=== PATIENT | male | born 1985 | race Caucasian/White ===

== ENCOUNTER 2017-08-14 08:40 | Emergency (ER) | payer BC ==
[~2017-08-14] VITALS: Ht 177.8 cm; Wt 102.1 kg
--- OUTSIDE RECORDS SUMMARY | ~2017-08-14 | XMS ---
Demographics + + + | Address | [address] | | | [place] [address] | + + + | Preferred Language | Unknown | + + + | Marital Status | Unknown | + + + | Muslim Affiliation | Unknown | + + + | Race | Unknown | + + + | Ethnic Group | Unknown | + + + Author + + + | Author | [facility] | + + + | Organization | [facility] | + + + | Address | [address] | | | [place] [address] | + + + | Phone | | + + + Care Team Providers + + + + | Care Verify Rep Name | Role | Phone | + + + + Unavailable | Unavailable | + + + + PROBLEMS + + + + + + + + | Type | Condition | ICD9-CM | [id number] | Onset | Condition | SNOMED | | | | Code | Code | Dates | Status | Code | + + + + + + + + | Problem | Impetigo | 684 | | | Active | [id number] | + + + + + + + + | Problem | JOINT | 719.46 | | | Active | [id number] | | | PAIN-L/LEG | | | | | | + + + + + + + + | Assessment | Thoracic | M54.6 | | 28 August, | Active | [id number] | | | back pain | | | 2016 | | | + + + + + + + + ALLERGIES + + + + +---------+ | Substance | Reaction | Event Type | Date | Status | + + + + +---------+ | Marquez | Unknown | Non Drug | August, | Unknown | | | | Allergy | | | + + + + +---------+ SOCIAL HISTORY No smoking Hx information available PLAN OF CARE VITAL SIGNS + + + + | Height | 71 in | 2016-08-28 | + + + + | Weight | 237.8 lbs | 2016-08-28 | + + + + | BMI | 33.16 kg/m2 | 2016-08-28 | + + + + | Temperature | 98.8 degrees Fahrenheit | 2016-08-28 | + + + + | Heart Rate | 86 /min | 2016-08-28 | + + + + | Blood pressure systolic | 177 mm Hg | 2016-08-28 | + + + + | Blood pressure diastolic | 113 mm Hg | 2016-08-28 | + + + + MEDICATIONS + + +---------+ + + + +--------+ | Medicati | Instruct | Dosage | Frequenc | Start | End Date | Duration | Status | | on | ions | | y | Date | | | | + + +---------+ + + + +--------+ | Cycloben | Orally | 1-2 | 8h | 28 August, | 31 August, | 3 days | Active | | zaprine | Three | tablet | | 2016 | 2016 | | | | HCl 5 MG | times a | as | | | | | | | | day | needed | | | | | | + + +---------+ + + + +--------+ RESULTS No Results PROCEDURES + + + + + | Procedure | Date Ordered | Related Diagnosis | Body Site | + + + + + | Est Level III | August 28, 2016 | | | | Intermediate | | | | + + + + + IMMUNIZATIONS No Known Immunizations"
--- OUTSIDE RECORDS SUMMARY | ~2017-08-14 | XMS | Clinical Summary ---
Demographics + + + | Address | [address] | | | [place] [address] | + + + | Home Phone | | + + + | Preferred Language | Unknown | + + + | Marital Status | Single | + + + | Presybeterian Affiliation | 1013 | + + + | Race | Unknown | + + + | Ethnic Group | Unknown | + + + Author + + + | Author | [facility] | | | and [place] | + + + | Organization | [facility] | | | and [place] | + + + | Address | Unknown | + + + | Phone | Unavailable | + + + Support + + +---------+ + | Name | Relationship | Address | Phone | + + +---------+ + | Chloé Rose | ECON | Unknown | | + + +---------+ + Care Team Providers + +------+ + | Care Featherer Name | Role | Phone | + +------+ + | No, Physician | PP | Unavailable | + +------+ + Allergies No Known Allergies Current Medications + + +-------+---------+------+------+-------+ | Prescription | Sig. | Disp. | Refills | Star | End | Statu | | | | | | t | Date | s | | | | | | Date | | | + + +-------+---------+------+------+-------+ | naproxen | Take 500 mg by mouth | | | | | Activ | | (NAPROSYN) 500 mg | 2 times daily (with | | | | | e | | tablet | breakfast & | | | | | | | | dinner). | | | | | | + + +-------+---------+------+------+-------+ | cyclobenzaprine | Take 10 mg by mouth | | | | | Activ | | (FLEXERIL) 10 mg | 3 times daily as | | | | | e | | tablet | needed for Muscle | | | | | | | | spasms. | | | | | | + + +-------+---------+------+------+-------+ Active Problems Not on file Family History + + +------+ + | Medical History | Relation | Name | Comments | + + +------+ + | No Known Problems | Father | | | + + +------+ + | No Known Problems | Maternal | | | | | Grandfath | | | | | er | | | + + +------+ + | No Known Problems | Maternal | | | | | Grandmoth | | | | | er | | | + + +------+ + | Thyroid disease | Mother | | | + + +------+ + | No Known Problems | Paternal | | | | | Grandfath | | | | | er | | | + + +------+ + | No Known Problems | Paternal | | | | | Grandmoth | | | | | er | | | + + +------+ + + +------+--------+ + | Relation | Name | Status | Comments | + +------+--------+ + | Father | | Other | STATUS UNKNOWN | + +------+--------+ + | Maternal Grandfather | | Other | STATUS UNKNOWN | + +------+--------+ + | Maternal Grandmother | | Other | STATUS UNKNOWN | + +------+--------+ + | Mother | | Alive | | + +------+--------+ + | Paternal Grandfather | | Other | STATUS UNKNOWN | + +------+--------+ + | Paternal Grandmother | | Other | STATUS UNKNOWN | + +------+--------+ + Social History + +-------+ +--------+------+ | Tobacco Use | Types | Packs/Day | Years | Date | | | | | Used | | + +-------+ +--------+------+ | Current Every Day | | 0.5 | 15 | | | Smoker | | | | | + +-------+ +--------+------+ + +---+---+---+ | Smokeless Tobacco: | | | | | Never Used | | | | + +---+---+---+ + + +---------+ + | Alcohol Use | Drinks/We | oz/Week | Comments | | | ek | | | + + +---------+ + | Yes | | | Frequently | + + +---------+ + + + + | Sex Assigned at | Date Recorded | | | | + + + | Not on file | | + + + Plan of Treatment + + + + + | Health Maintenance | Due Date | Last Done | Comments | + + + + + | Vaccine: | | | | | Dtap/Tdap/Td (1 - | 3 | | | | Tdap) | | | | + + + + + | Vaccine: | | | | | Pneumococcal 19-64 | 3 | | | | (PPSV23 only) Medium | | | | | Risk (1 of 1 - | | | | | PPSV23) | | | | + + + + + | Vaccine: Influenza | | | | | (Season Ended) | 8 | | | + + + + + Results Not on filefrom Last 3 Months Insurance +-------+--------+ +------+-------+---------+ | Payer | Benefi | Subscriber | Type | Phone | Address | | | t Plan | ID | | | | | | / | | | | | | | Group | | | | | +-------+--------+ +------+-------+---------+ | BCBS | BCBS | xxxxxxxxxxx | PPO | | | | | OUT OF | x | | | | | | STATE | | | | | | | PPO | | | | | +-------+--------+ +------+-------+---------+ + +--------+ +--------+ + + | Guarantor Name | Accoun | Relation to | Date | Phone | Billing Address | | | t Type | Patient | of | | | | | | | | | | + +--------+ +--------+ + + | WALE MAYS | Person | Self | [birth year] Home: | [address] | | | al/Fam | | 1985 | [phone] | [place] [address] | | | meaghan | | | 2004 | | + +--------+ +--------+ + +"
--- OUTSIDE RECORDS SUMMARY | ~2017-08-14 | XMS | Clinical Summary ---
Demographics + + + | Address | [address] | | | [place] [address] | + + + | Home Phone | | + + + | Preferred Language | Unknown | + + + | Marital Status | Single | + + + | Yazdanism Affiliation | Unknown | + + + | Race | Unknown | + + + | Ethnic Group | Unknown | + + + Author + + + | Author | [facility] | + + + | Organization | [facility] | + + + | Address | Unknown | + + + | Phone | Unavailable | + + + Support + + +---------+ + | Name | Relationship | Address | Phone | + + +---------+ + | Chloé Mays | ECON | Unknown | | + + +---------+ + Care Team Providers + +------+ + | Care Cell Room Operator Name | Role | Phone | + +------+ + | Clinic, [facility] | PP | Unavailable | | Community | | | + +------+ + Allergies Not on [...]
--- OUTSIDE RECORDS SUMMARY | ~2017-08-14 | XMS | Clinical Summary ---
Demographics + + + | Address | [address] | | | [place] [address] | + + + | Home Phone | | + + + | Preferred Language | Unknown | + + + | Marital Status | Single | + + + | Jainism Affiliation | Unknown | + + + [...] | + + + + + | GALEN ROMERO | ECON | [address] | | | | | [place] [address] | | + + + + + Care Team Providers + +------+ + | Care Recreation Leader Name | Role | Phone | + +------+ + PP | Unavailable | + +------+ + Source Comments YANG is fully live on both [facility] and [facility] InPatient.[facility] Allergies Not on File Current Medications Not [...] | + + + + + | INFLUENZA VACCINE | | | | | (FLU SHOT) | 8 | | | + + + + + Results Not on filefrom Last 3 Months"
--- OUTSIDE RECORDS SUMMARY | ~2017-08-14 | XMS | Clinical Summary ---
Demographics + + + | Address | [address] | | | [place] [address] | + + + | Home Phone | | + + + | Preferred Language | Unknown | + + + | Marital Status | Single | + + + | Yazdanism Affiliation | 1013 | + + + | Race | Unknown | + + + | Ethnic Group | Unknown | + + + Author + + + | Author | [facility] | | | and [place] | + + + | Organization | [facility] | | | and [place] | [...] Team Providers + +------+ + | Care Potato Picker Name | Role | Phone | + [...] Self | [birth year] | Home: | [address] | | | al/Fam | | 1985 | [phone] | [place] [address] | | | meaghan | | | 2004 | | + +--------+ +--------+ + +"
--- OUTSIDE RECORDS SUMMARY | ~2017-08-14 | XMS | Clinical Summary ---
Demographics + + + | Address | [address] | | | [place] [address] | + + + | Home Phone | | + + + | Preferred Language | Unknown | + + + | Marital Status | Single | + + + | Scientology Affiliation | Unknown | + + + | Race | Unknown | + + + | Ethnic Group | Unknown | + + + Author + + + | Author | [facility] | + + + | Organization | [facility] | + + + | Address | Unknown | + + + | Phone | Unavailable | + + + Support + + +---------+ + | Name | Relationship | Address | Phone | + + +---------+ + | Chloé Mays | ECON | Unknown | | + + +---------+ + Care Team Providers + +------+ + | Care Locks Tender Name | Role | Phone | + +------+ + | Clinic, [facility] | PP | Unavailable | | Community [...]
--- OUTSIDE RECORDS SUMMARY | ~2017-08-14 | XMS | Clinical Summary ---
Demographics + + + | Address | [address] | | | [place] [address] | + + + | Home Phone [...] | | | | | [place] [address] | | + + + + + Care Team Providers + +------+ + | Care Policy Change Clerk Name | Role | Phone | + +------+ + PP | Unavailable | + +------+ + Source Comments YANG is fully live on both [facility] and [facility] InPatient.[facility] Allergies Not on File Current Medications Not [...]
== END 2017-08-14 09:10 | disposition home or self-care (01) ==
LOC: ED 08:40
DX: M54.9 Dorsalgia, unspecified (principal); R10.9 Unspecified abdominal pain

== ENCOUNTER 2018-09-19 08:55 | Day surgery (SDC) | payer OTHER ==
[~2018-09-19] VITALS: Ht 177.8 cm; Wt 106.6 kg
--- NOTE | 2018-09-19 13:00 | NUR ---
09/19/18 1300 Sheets,Aida 1255 PT ARRIVED TO PACU ON 10L VIA MASK, RESP EVEN AND UNLABORED. PT DROWSY AND REPORTS 5/10 PAIN AND NO NAUSEA. 1258 O2 MASK REMOVED. PT ABLE TO MOVE FINGERS AND REPORTS SOME NUMBNESS AND TINGLING IN FINGERS.
--- NOTE | 2018-09-19 13:37 | NUR ---
1315 PT BACK TO ROOM FROM PACU AWAKE AND ALERT DENIES PAIN AND NAUSEA,
--- NOTE | 2018-09-19 13:38 | NUR ---
1320 PT WALKED TO BATHROOM WITHOUT ASSIST HE WAS ABLE TO VOID
--- NOTE | 2018-09-19 13:39 | NUR ---
1335 PT ASKING FOR FOOD SANDWICH WAS ORDERED FOR HIM. [place] DRINKING WATER TOLERATES WELL.
--- NOTE | 2018-09-19 14:08 | NUR ---
1400 PT ATE A SANDWICH AND DRANK COKE TOLERATES WELL. DISCHARGE INSTRUCTIONS GIVEN TO PT HE VOICED UNDERSTANDING
--- NOTE | 2018-09-20 07:02 | OR ---
[facility] [address] [place], [place] [address] Signed DATE OF OPERATION: 09/19/2018 SURGEON: Lorri Saab MD PREOPERATIVE DIAGNOSIS: Displaced fracture, right 5th finger proximal phalanx base. POSTOPERATIVE DIAGNOSIS: Displaced fracture, right 5th finger proximal phalanx base. PROCEDURE: Attempted closed reduction followed by open reduction and K-wire fixation. ANESTHESIA: General. SPECIMENS: None. COMPLICATIONS: None. Tourniquet was not used, but we did use an Esmarch about the wrist for about 15 minutes. WHAT WAS DONE: The patient was taken to the operating room. After anesthesia was induced and the airway secured, the patient was positioned, prepped and draped in a routine sterile fashion. Fluoroscopy was brought in and the fracture site identified. We then made multiple attempts to reduce the fracture, but we were unable to correct the marked apex volar angulation. We, therefore, wrapped the hand with an Esmarch and left it snugly about the wrist. We then made a dorsal incision over the proximal phalanx through skin and subcutaneous tissue. The extensor tendon was identified and gently split. The fracture site was then identified and even with 2 dental picks, it was very difficult to reduce the fracture. However, once we were able to get it reduced, we held it in place and then secured it with two 1.5 K-wires introduced in a crisscross fashion. This gave us a stable construct. We were then able to wiggle the finger and the proximal and distal segments moved synchronously. The excess K-wires were cut off and bent over outside the skin. The wounds were gently irrigated and closed in a standard fashion. A sterile dressing was applied. The patient was awakened and taken to recovery room where he Electronically Signed By: LORRI SAAB MD 09/20/18 0702 PATIENT NAME: WALE ROMERO OPERATIVE REPORT DATE OF : 81 REPORT #: [id number] PHYSICIAN: LORRI SAAB MD PCP: NO PRIMARY CARE PHYSICIAN REPORT IS CONFIDENTIAL AND NOT TO BE RELEASED WITHOUT AUTHORIZATION [address] [address] Signed arrived in stable condition. Counts were correct and antibiotic protocols were followed. Lorri Saab MD WFGerri/MODL /[id number] Copies: ~ Electronically Signed By: LORRI SAAB MD 09/20/18 0702 PATIENT NAME: WALE ROMERO OPERATIVE REPORT DATE OF : 81 REPORT #: [id number] PHYSICIAN: LORRI SAAB MD PCP: NO PRIMARY CARE PHYSICIAN REPORT IS CONFIDENTIAL AND NOT TO BE RELEASED WITHOUT AUTHORIZATION
[2018-09-20] MEDS ORDERED: IBUPROFEN800 MG PO (11:37)
[2018-09-20] MEDS ORDERED: PAIN RELIEVER500 M1 PO (11:37)
[2018-09-20] MEDS ORDERED: NORCO 5-325 TA1 EACH PO (11:50)
== END 2018-09-19 14:20 | disposition home or self-care (01) ==
LOC: DS 08:55 → OPS 08:55 → DS 11:45 → OPS 14:20
PROVIDERS: Orthopaedic Surgery
PROC: 0PST04Z Reposition Right Finger Phalanx with Internal Fixation Device, Open Approach (ICD-10-PCS; principal; 2018-09-19 11:45)
DX: S62.616A Displaced fracture of proximal phalanx of right little finger, initial encounter for closed fracture (principal); F32.9 Major depressive disorder, single episode, unspecified; E66.9 Obesity, unspecified; F17.200 Nicotine dependence, unspecified, uncomplicated; Z68.33 Body mass index [BMI] 33.0-33.9, adult; W22.8XXA Striking against or struck by other objects, initial encounter
CPT/HCPCS: 01830; 73140; J0690; J1100; J1885; J2250; J2405; J2704; J2765; J3010; J7120

== ENCOUNTER 2018-09-20 11:25 | Emergency (ER) | payer OTHER ==
[~2018-09-20] VITALS: Ht 177.8 cm; Wt 106.6 kg
--- OUTSIDE RECORDS SUMMARY | ~2018-09-20 | XMS | Encounter Summary ---
Demographics + + + | Address | [address] | | | [place] [address] | + + + | Home Phone | | + + + | Preferred Language | Unknown | + + + | Marital Status | Single | + + + | Worship Affiliation | Unknown | + + + | Race | White | + + + | Ethnic Group | Not or | + + + Author + + + | Author | [facility] | + + + | Organization | [facility] | + + + | Address | Unknown | + + + | Phone | Unavailable | + + + Support + + + + + | Name | Relationship | Address | Phone | + + + + + | Shauna Mays | ECON | [address] | | | | | [place] [address] | | + + + + + Care Team Providers + +------+ + | Care Biodiesel Process Control Technician Name | Role | Phone | + +------+ + PCP | Unavailable | + +------+ + Encounter Details +--------+ + + + + | Date | Type | Department | Care Team | Description | +--------+ + + + + | 03/10/ | Results | Orthopaedics at | Kameron Asif MD | | | 1996 | Only | [facility] [address] | [address] | | | | | [facility] | [address] [place], | | | | | Mailcode: [id number] | [place] [address] | | | | | Physician's Es | | | | | | [place], [place] | | | | | | [address] | | | | | | [phone] | | | +--------+ + + + + Social History + +-------+ +--------+------+ | Tobacco Use | Types | Packs/Day | Years | Date | | | | | Used | | + +-------+ +--------+------+ | Never Assessed | | | | | + +-------+ +--------+------+ + + + | Sex Assigned at | Date Recorded | | | | + + + | Not on file | | + + + + + + + | Job Start Date | Occupation | Industry | + + + + | Not on file | Not on file | Not on file | + + + + + + + + | Travel History | Travel Start | Travel End | + + + + + + | No recent travel history available. | + + documented as of this encounter Plan of Treatment Not on filedocumented as of this encounter Procedures + +--------+ + + + | Procedure Name | Priori | Date/Time | Associated Diagnosis | Comments | | | ty | | | | + +--------+ + + + | X-RAY BONE AGE; LEFT | Routin | 03/10/1997 | | Results for this | | HAND | e | 2:35 PM | | procedure are in the | | | | PST | | results section. | + +--------+ + + + documented in this encounter Results BONE AGE; LEFT HAND (03/10/1997 2:35 PM PST) + + + + + + | Component | Value | Ref Range | Performed | Pathologist | | | | | At | Signature | + + + + + + | BONE AGE, | Radiologist 1: JUSTIN | | | | | LEFT HAND | JOSH Villalobos, | | | | | | Prachi-Radiologist 2: | | | | | | JOSH ANDERSON, | | | | | | M.FLASH | | | | | | MAXIMO | | | | | | | | | | | | | | | | | | [phone] | | | | | | BONE AGE/LEFT HAND on | | | | | | 03/10/97 at 1435Dictated | | | | | | on 03/11/97 COMPARISON: | | | | | | 09/11/95 single view of | | | | | | left hand for bone age. | | | | | | FINDINGS: The | | | | | | mineralization and | | | | | | structure of the bones | | | | | | appearsnormal. The joint | | | | | | space of the hand are | | | | | | normal. The | | | | | | patient'schronologic age | | | | | | is 11 years, nine | | | | | | months which has an | | | | | | associatedstandard | | | | | | deviation of 12 | | | | | | months. Using the | | | | | | standards of Greulich | | | | | | andPyle, the estimated | | | | | | bone age is 11 years, | | | | | | six months. IMPRESSION: | | | | | | Concordant skeletal | | | | | | maturation of 11 years, | | | | | | six months with | | | | | | thechronological age. | | | | | | END OF IMPRESSION: | | | | + + + + + + + + | Specimen | + + | | + + + +---------+ + + | Performing | Address | City/State/Zipcode | Phone Number | | Organization | | | | + +---------+ + + | [facility] DEPARTMENT OF | | | | | RADIOLOGY | | | | + +---------+ + + documented in this encounter Visit Diagnoses Not on filedocumented in this encounter"
--- OUTSIDE RECORDS SUMMARY | ~2018-09-20 | XMS | Encounter Summary ---
Demographics + + + | Address | [address] | | | [place] [address] | + + + | Home Phone | | + + + | Preferred Language | Unknown | + + + | Marital Status | Single | + + + | Confucianism Affiliation | Unknown | + + + | Race | White | + + + | Ethnic Group | Not or | + + + Author + + + | Author | [facility] | + + + | Organization | [facility] | + + + | Address | Unknown | + + + | Phone | Unavailable | + + + Support + + + + + | Name | Relationship | Address | Phone | + + + + + | Shauna Mays | ECON | [address] | | | | | [place] [address] | | + + + + + Care Team Providers + +------+ + | Care Trench Digger Name | Role | Phone | + +------+ + PCP | Unavailable | + +------+ + Encounter Details +--------+ + + + + | Date | Type | Department | Care Team | Description | +--------+ + + + + | 09/10/ | Results | Orthopaedics at | Kameron Asif MD | | | 1995 | Only | [facility] [address] | [address] | | | | | [facility] | [address] [place], | | | | | Mailcode: [id number] | [place] [address] | | | | | Physician's Es | | | | | | [place], [place] | | | | | | [address] | | | | | | [phone] | | | +--------+ + + + [...] X-RAY BONE AGE; LEFT | Routin | 09/11/1995 | | Results for this | | HAND | e | 3:00 PM | | procedure are in the | | | | PDT | | results section. | + +--------+ + + + documented in this encounter Results BONE AGE; LEFT HAND (09/11/1995 3:00 PM PDT) + + + + + + | Component | Value | Ref Range | Performed | Pathologist | | | | | At | Signature | + + + + + + | BONE AGE, | Radiologist 1: JATINDER LARES | | | | | LEFT HAND | Prachi Wiley-Radiologist 2: | | | | | | JATINDER LARES, | | | | | | DARIANA | | | | | | MAXIMO | | | | | | | | | | | | | | | | | | [birth year] | | | | | | BONE AGE, LEFT | | | | | | HAND, 09/11/95 AT | | | | | | 1500: Dictated: | | | | | | No previous films | | | | | | are available for | | | | | | comparison. FINDINGS: A | | | | | | single view of the left | | | | | | hand from 11 Sep 1995 is | | | | | | reviewed. Usingthe | | | | | | standards of Gelacio | | | | | | and Julio Cesar the patient's | | | | | | estimated bone age is9 | | | | | | years. The bones | | | | | | appear to have normal | | | | | | mineralization | | | | | | andconfiguration. | | | | | | IMPRESSION: Estimated | | | | | | bone age 9 years. END | | | | | | OF IMPRESSION: | | | | + + + + + + + + | Specimen | + + | | + + + +---------+ + + | Performing | Address | City/State/Zipcode | Phone Number | | Organization | | | | + +---------+ + + | [facility] DEPARTMENT OF | | | | | RADIOLOGY | | | | + +---------+ + + documented in this encounter Visit Diagnoses Not on filedocumented in this encounter"
--- OUTSIDE RECORDS SUMMARY | ~2018-09-20 | XMS | Encounter Summary ---
Demographics + + + | Address | [address] | | | [place] [address] | + + + | Home Phone | | + + + | Preferred Language | Unknown | + + + | Marital Status | Single | + + + | Yazidi Affiliation | Unknown | + + + | Race | White | + + + | Ethnic Group | Not or | + + + Author + + + | Author | [facility] | + + + | Organization | [facility] | + + + | Address | Unknown | + + + | Phone | Unavailable | + + + Support + + + + + | Name | Relationship | Address | Phone | + + + + + | Shauna Mays | ECON | [address] | | | | | [place] [address] | | + + + + + Care Team Providers + +------+ + | Care Boilerhouse Mechanic Name | Role | Phone | + +------+ + PCP | Unavailable | + +------+ + Encounter Details +--------+ + + + + | Date | Type | Department | Care Team | Description | +--------+ + + + + | 02/13/ | Office | UNKNOWN DEPARTMENT | Note, Outpatient | Progress Note | | 1993 | Visit-Trans | [address] [facility] | Clinic | | | | zhane | [facility] | | | | | | [place], [place] | | | | | | [address] | | | +--------+ + + + [...] + + documented as of this encounter Progress Notes Interface, Workers Compensation Claims Supervisor In - 08/25/2006 5:12 AM PDT CLINIC DATE: 02/13/94 PEDIATRIC UROLOGY CLINIC REASON FOR ADMISSION: Preoperative history and physical (H&P) for right undescended testis. HISTORY OF PRESENT ILLNESS: Alfred is an otherwise healthy 8-year-old male who had a history of right undescended testis. His mother states that at the age of [age], his physician thought bilateral testes were palpable and recommended no further therapy. However, on further evaluation more recently, during an admission for bilateral slipped epiphyses in the hips, he was noted to have an empty right hemiscrotum. On further examination by Genitourinary () referral, some tissue was present within the right hemiscrotum, thought to be consistent with gubernacular or tunica remnants, but no discrete testicle was palpable. The child is obese and, as a result, no significant masses are palpable in the groin. He presents, at this time, for definitive management. PAST HISTORY: Negative except for the history of bilateral slipped femoral epiphyses. Patient has a history of borderline diabetes which is apparently diet controlled at the present time. FAMILY HISTORY: Remarkable only for recurrent nosebleeds of prolonged duration in both the mother, the grandfather and his sister. The patient, himself, has never had any problems with bleeding. He has no history of urinary tract infections. PHYSICAL EXAMINATION: Reveals a pleasant, significantly obese male in no apparent distress. The cardiac and chest exams are unremarkable. There is no cervical adenopathy. The abdomen is morbidly obese but no palpable masses are palpable. The phallus is concealed but when the prepubic fat pad is retracted, a normal appearing glans and meatus are present. The left scrotum is flattened but a testicle is palpable in the normal position. The right scrotum is also flattened but is devoid of palpable gonad. Some tissue is present, however. ASSESSMENT: Right undescended, nonpalpable testis. Questionable history of palpable right gonad in the past at the age of [age]. PLAN: Since this testis is not easily palpable at the age of 8, and since his risk of gonadal malignancy will increase as he enters his teens and 20s, it is essential that this testicle will be easily palpable for following him for the development of a malignancy. As a result, right inguinal exploration and right orchidopexy will be performed, if possible, next month. A full PARQ conference was held with the patient's mother stressing the multiple possibilities associated with undescended testes. These include orchiectomy, staged orchidopexy, or single stage orchidopexy. The risks for gonadal ischemia and subsequent testicular loss due to atrophy were stressed. Risks of infection and bleeding were also described. The patient's mother states she understands these risks and wishes to proceed. Consent was signed. Krunal Garrison M.D. Resident, Urology Allan Napier M.D. Chair Pad Maker Urology DV:re documented in this encounter Plan of Treatment Not on filedocumented as of this encounter Visit Diagnoses Not on filedocumented in this encounter"
--- OUTSIDE RECORDS SUMMARY | ~2018-09-20 | XMS | Encounter Summary ---
Demographics + + + | Address | [address] | | | [place] [address] | + + + | Home Phone | | + + + | Preferred Language | Unknown | + + + | Marital Status | Single | + + + | Pentecostal Affiliation | Unknown | + + + | Race | White | + + + | Ethnic Group | Not or | + + + Author + + + | Author | [facility] | + + + | Organization | [facility] | + + + | Address | Unknown | + + + | Phone | Unavailable | + + + Support + + + + + | Name | Relationship | Address | Phone | + + + + + | Shauna Mays | ECON | [address] | | | | | [place] [address] | | + + + + + Care Team Providers + +------+ + | Care Retirement Consultant Name | Role | Phone | + +------+ + PCP | Unavailable | + +------+ + Encounter Details +--------+ + + + + | Date | Type | Department | Care Team | Description | +--------+ + + + + | 08/22/ | Hospital | Registration [id number] | Corinna Mendoza, | | | 2006 | Activity | Benjy Shafer | ACN [address] [facility] | | | | | [facility] Mailcode: | [place], [place] | | | | | [place], [place] | [address] | | | | | [address] | [phone] | | | | | [phone] | | | +--------+ + + + [...] | + +--------+ + + + | DIFFERENTIAL | Routin | 08/23/2006 | | Results for this | | | e | 6:02 AM | | procedure are in the | | | | PDT | | results section. | + +--------+ + + + | CBC, WITH | Routin | 08/23/2006 | | Results for this | | DIFFERENTIAL | e | 6:02 AM | | procedure are in the | | | | PDT | | results section. | + +--------+ + + + | BASIC METABOLIC SET | Routin | 08/23/2006 | | Results for this | | (NA, K, CL, TCO2, | e | 6:02 AM | | procedure are in the | | BUN, CR, GLU, CA) | | PDT | | results section. | + +--------+ + + + | PHOSPHORUS, PLASMA | Routin | 08/23/2006 | | Results for this | | | e | 6:02 AM | | procedure are in the | | | | PDT | | results section. | + +--------+ + + + | MAGNESIUM, PLASMA | Routin | 08/23/2006 | | Results for this | | | e | 6:02 AM | | procedure are in the | | | | PDT | | results section. | + +--------+ + + + | HEMATOCRIT | Urgent | 08/23/2006 | | Results for this | | | | 12:10 AM | | procedure are in the | | | | PDT | | results section. | + +--------+ + + + | TYPE AND SCREEN | Routin | 08/22/2006 | | Results for this | | | e | 5:45 PM | | procedure are in the | | | | PDT | | results section. | + +--------+ + + + | INR | Urgent | 08/22/2006 | | Results for this | | | | 5:41 PM | | procedure are in the | | | | PDT | | results section. | + +--------+ + + + | BASIC METABOLIC SET | Urgent | 08/22/2006 | | Results for this | | (NA, K, CL, TCO2, | | 5:41 PM | | procedure are in the | | BUN, CR, GLU, CA) | | PDT | | results section. | + +--------+ + + + | CBC ONLY | Urgent | 08/22/2006 | | Results for this | | | | 5:41 PM | | procedure are in the | | | | PDT | | results section. | + +--------+ + + + | APTT (ACT. PART. | Urgent | 08/22/2006 | | Results for this | | THROMBO TIME) | | 5:41 PM | | procedure are in the | | | | PDT | | results section. | + +--------+ + + + | LIPASE, PLASMA | Urgent | 08/22/2006 | | Results for this | | | | 5:41 PM | | procedure are in the | | | | PDT | | results section. | + +--------+ + + + documented in this encounter Results MAGNESIUM, PLASMA (08/23/2006 6:02 AM PDT) + +-------+ + + + | Component | Value | Ref Range | Performed | Pathologist | | | | | At | Signature | + +-------+ + + + | MAGNESIUM,P | 1.9 | 1.8 - 2.5 mg/dL | [facility] | | | LASMA | | | DEPARTMENT | | | | | | OF | | | | | | PATHOLOGY | | + +-------+ + + + + + | Specimen | + + | | + + + + + + + | Performing | Address | City/State/Zipcode | Phone Number | | Organization | | | | + + + + + | [facility] | [address] | [place] [address] | | | PATHOLOGY | [address] | | | + + + + + | [facility] | [address] | [place] [address] | | | PATHOLOGY | [address] | | | + + + + + PHOSPHORUS, PLASMA (08/23/2006 6:02 AM PDT) + +-------+ + + + | Component | Value | Ref Range | Performed | Pathologist | | | | | At | Signature | + +-------+ + + + | PHOSPHORUS, | 4.5 | 2.4 - 4.7 mg/dL | [facility] | | | PLASMA | | | DEPARTMENT | | | (LAB) | | | OF | | | | | | PATHOLOGY | | + +-------+ + + + + + | Specimen | + + | | + + + + + + + | Performing | Address | City/State/Zipcode | Phone Number | | Organization | | | | + + + + + | [facility] | [address] | [place], [place] [address] | | | PATHOLOGY | [address] | | | + + + + + | [facility] | [address] | [place] [address] | | | PATHOLOGY | [address] | | | + + + + + BASIC METABOLIC SET (08/23/2006 6:02 AM PDT) + + + + + + | Component | Value | Ref Range | Performed | Pathologist | | | | | At | Signature | + + + + + + | GLUCOSE, | 125 (H)Comment: | 60 - 99 mg/dL | [facility] | | | PLASMA | Reference range change | | DEPARTMENT | | | (LAB) | for Glucose, Plasma | | OF | | | | effective 08/09/06. | | PATHOLOGY | | + + + + + + | BUN, PLASMA | 4 (L) | 6 - 20 mg/dL | [facility] | | | (LAB) | | | DEPARTMENT | | | | | | OF | | | | | | PATHOLOGY | | + + + + + + | CREATININE | 0.8 | 0.7 - 1.3 mg/dL | [facility] | | | PLASMA | | | DEPARTMENT | | | (LAB) | | | OF | | | | | | PATHOLOGY | | + + + + + + | SODIUM, | 140 | 136 - 145 | [facility] | | | PLASMA | | mmol/L | DEPARTMENT | | | (LAB) | | | OF | | | | | | PATHOLOGY | | + + + + + + | POTASSIUM, | 3.7 | 3.5 - 5.1 | [facility] | | | PLASMA | | mmol/L | DEPARTMENT | | | (LAB) | | | OF | | | | | | PATHOLOGY | | + + + + + + | CHLORIDE, | 105 | 98 - 107 mmol/L | [facility] | | | PLASMA | | | DEPARTMENT | | | (LAB) | | | OF | | | | | | PATHOLOGY | | + + + + + + | TOTAL CO2, | 30 (H) | 23 - 29 mmol/L | [facility] | | | PLASMA | | | DEPARTMENT | | | (LAB) | | | OF | | | | | | PATHOLOGY | | + + + + + + | CALCIUM, | 8.3 (L) | 8.5 - 10.5 | [facility] | | | PLASMA | | mg/dL | DEPARTMENT | | | (LAB) | | | OF | | | | | | PATHOLOGY | | + + + + + + + + | Specimen | + + | | + + + + + + + | Performing | Address | City/State/Zipcode | Phone Number | | Organization | | | | + + + + + | [facility] | [address] | [place] [address] | | | PATHOLOGY | [address] | | | + + + + + | [facility] | [address] | [place] [address] | | | PATHOLOGY | [address] | | | + + + + + DIFFERENTIAL (08/23/2006 6:02 AM PDT) + +--------+ + + + | Component | Value | Ref Range | Performed | Pathologist | | | | | At | Signature | + +--------+ + + + | NEUTROPHIL | 47 (L) | 50 - 70 % | [facility] | | | % | | | DEPARTMENT | | | | | | OF | | | | | | PATHOLOGY | | + +--------+ + + + | LYMPHOCYTE | 37 | 18 - 42 % | [facility] | | | % | | | DEPARTMENT | | | | | | OF | | | | | | PATHOLOGY | | + +--------+ + + + | MONOCYTE % | 12 (H) | 2 - 8 % | [facility] | | | | | | DEPARTMENT | | | | | | OF | | | | | | PATHOLOGY | | + +--------+ + + + | EOS % | 2 | 1 - 3 % | [facility] | | | | | | DEPARTMENT | | | | | | OF | | | | | | PATHOLOGY | | + +--------+ + + + | BASO % | 1 | <3 % | [facility] | | | | | | DEPARTMENT | | | | | | OF | | | | | | PATHOLOGY | | + +--------+ + + + | NEUTROPHIL | 2.5 | 1.8 - 7.7 K/cu | [facility] | | | # | | mm | DEPARTMENT | | | | | | OF | | | | | | PATHOLOGY | | + +--------+ + + + | LYMPHOCYTE | 2.0 | 1.0 - 4.8 K/cu | [facility] | | | # | | mm | DEPARTMENT | | | | | | OF | | | | | | PATHOLOGY | | + +--------+ + + + | MONOCYTE # | 0.7 | <0.9 K/cu mm | [facility] | | | | | | DEPARTMENT | | | | | | OF | | | | | | PATHOLOGY | | + +--------+ + + + | EOS # | 0.1 | <0.6 K/cu mm | [facility] | | | | | | DEPARTMENT | | | | | | OF | | | | | | PATHOLOGY | | + +--------+ + + + | BASO # | 0.1 | <0.2 | [facility] | | | | | | DEPARTMENT | | | | | | OF | | | | | | PATHOLOGY | | + +--------+ + + + + + | Specimen | + + | | + + + + + + + | Performing | Address | City/State/Zipcode | Phone Number | | Organization | | | | + + + + + | [facility] | [address] | [place], [place] [address] | | | PATHOLOGY | [address] | | | + + + + + | [facility] | [address] | [place] [address] | | | PATHOLOGY | [address] | | | + + + + + CBC, WITH DIFFERENTIAL (08/23/2006 6:02 AM PDT) + + + + + + | Component | Value | Ref Range | Performed | Pathologist | | | | | At | Signature | + + + + + + | WHITE CELL | 5.4 | 4.4 - 11.0 K/cu | [facility] | | | COUNT | | mm | DEPARTMENT | | | | | | OF | | | | | | PATHOLOGY | | + + + + + + | RED CELL | 4.04 (L) | 4.50 - 5.90 | [facility] | | | COUNT | | M/cu mm | DEPARTMENT | | | | | | OF | | | | | | PATHOLOGY | | + + + + + + | HEMOGLOBIN | 11.1 (L) | 13.5 - 17.5 | [facility] | | | | | g/dL | DEPARTMENT | | | | | | OF | | | | | | PATHOLOGY | | + + + + + + | HEMATOCRIT | 32.7 (L) | 41.0 - 53.0 % | [facility] | | | | | | DEPARTMENT | | | | | | OF | | | | | | PATHOLOGY | | + + + + + + | MCV | 81.0 | 80.0 - 96.0 fL | [facility] | | | | | | DEPARTMENT | | | | | | OF | | | | | | PATHOLOGY | | + + + + + + | MCHC | 34.0 | 33.4 - 35.5 | [facility] | | | | | g/dL | DEPARTMENT | | | | | | OF | | | | | | PATHOLOGY | | + + + + + + | RDW | 15.1 (H) | 11.5 - 15.0 % | [facility] | | | | | | DEPARTMENT | | | | | | OF | | | | | | PATHOLOGY | | + + + + + + | PLATELET | 267 | 150 - 400 K/cu | [facility] | | | COUNT | | mm | DEPARTMENT | | | | | | OF | | | | | | PATHOLOGY | | + + + + + + + + | Specimen | + + | | + + + + + + + | Performing | Address | City/State/Zipcode | Phone Number | | Organization | | | | + + + + + | [facility] | [address] | [place] [address] | | | PATHOLOGY | [address] | | | + + + + + | [facility] | [address] | [place] [address] | | | PATHOLOGY | [address] | | | + + + + + HEMATOCRIT (08/23/2006 12:10 AM PDT) + + + + + + | Component | Value | Ref Range | Performed | Pathologist | | | | | At | Signature | + + + + + + | HEMATOCRIT | 32.4 (L) | 41.0 - 53.0 % | [facility] | | | | | | DEPARTMENT | | | | | | OF | | | | | | PATHOLOGY | | + + + + + + + + | Specimen | + + | | + + + + + + + | Performing | Address | City/State/Zipcode | Phone Number | | Organization | | | | + + + + + | [facility] | [address] | [place] [address] | | | PATHOLOGY | [address] | | | + + + + + | [facility] | [address] [place] [address] [address] | [place] [address] | | | PATHOLOGY | [address] | | | + + + + + TYPE AND SCREEN (08/22/2006 5:45 PM PDT) + +-------+ + + + | Component | Value | Ref Range | Performed | Pathologist | | | | | At | Signature | + +-------+ + + + | ABO GROUP | O | | [facility] | | | | | | DEPARTMENT | | | | | | OF | | | | | | PATHOLOGY | | + +-------+ + + + | RH TYPE | POS | | [facility] | | | | | | DEPARTMENT | | | | | | OF | | | | | | PATHOLOGY | | + +-------+ + + + | ANTIBODY | NEG | | [facility] | | | SCREEN | | | DEPARTMENT | | | | | | OF | | | | | | PATHOLOGY | | + +-------+ + + + + + | Specimen | + + | | + + + + + | Narrative | Performed At | + + + | INSTRUMENT TESTING INSTRUMENT TESTING INSTRUMENT TESTING | [facility] | | | DEPARTMENT OF | | | PATHOLOGY | + + + + + + + + | Performing | Address | City/State/Zipcode | Phone Number | | Organization | | | | + + + + + | [facility] | [address] | [place] [address] | | | PATHOLOGY | [address] | | | + + + + + | [facility] | [address] | [place] [address] | | | PATHOLOGY | [address] | | | + + + + + CBC ONLY WITH PLATELET (08/22/2006 5:41 PM PDT) + + + + + + | Component | Value | Ref Range | Performed | Pathologist | | | | | At | Signature | + + + + + + | WHITE CELL | 6.3 | 4.4 - 11.0 K/cu | [facility] | | | COUNT | | mm | DEPARTMENT | | | | | | OF | | | | | | PATHOLOGY | | + + + + + + | RED CELL | 4.13 (L) | 4.50 - 5.90 | [facility] | | | COUNT | | M/cu mm | DEPARTMENT | | | | | | OF | | | | | | PATHOLOGY | | + + + + + + | HEMOGLOBIN | 11.5 (L) | 13.5 - 17.5 | [facility] | | | | | g/dL | DEPARTMENT | | | | | | OF | | | | | | PATHOLOGY | | + + + + + + | HEMATOCRIT | 33.4 (L) | 41.0 - 53.0 % | [facility] | | | | | | DEPARTMENT | | | | | | OF | | | | | | PATHOLOGY | | + + + + + + | MCV | 80.6 | 80.0 - 96.0 fL | [facility] | | | | | | DEPARTMENT | | | | | | OF | | | | | | PATHOLOGY | | + + + + + + | MCHC | 34.5 | 33.4 - 35.5 | [facility] | | | | | g/dL | DEPARTMENT | | | | | | OF | | | | | | PATHOLOGY | | + + + + + + | RDW | 15.6 (H) | 11.5 - 15.0 % | [facility] | | | | | | DEPARTMENT | | | | | | OF | | | | | | PATHOLOGY | | + + + + + + | PLATELET | 185 | 150 - 400 K/cu | [facility] | | | COUNT | | mm | DEPARTMENT | | | | | | OF | | | | | | PATHOLOGY | | + + + + + + + + | Specimen | + + | | + + + + + + + | Performing | Address | City/State/Zipcode | Phone Number | | Organization | | | | + + + + + | [facility] | [address] | [place] [address] | | | PATHOLOGY | [address] | | | + + + + + | [facility] | [address] | [place] [address] | | | PATHOLOGY | [address] | | | + + + + + LIPASE (08/22/2006 5:41 PM PDT) + +--------+ + + + | Component | Value | Ref Range | Performed | Pathologist | | | | | At | Signature | + +--------+ + + + | LIPASE | 16 (L) | 22 - 51 U/L | [facility] | | | (LAB) | | | DEPARTMENT | | | | | | OF | | | | | | PATHOLOGY | | + +--------+ + + + + + | Specimen | + + | | + + + + + + + | Performing | Address | City/State/Zipcode | Phone Number | | Organization | | | | + + + + + | [facility] | [address] | [place] [address] | | | PATHOLOGY | [address] | | | + + + + + | [facility] | [address] | [place] [address] | | | PATHOLOGY | [address] | | | + + + + + PROTHROMBIN TIME (08/22/2006 5:41 PM PDT) + + + + + + | Component | Value | Ref Range | Performed | Pathologist | | | | | At | Signature | + + + + + + | INR | 1.16Comment: | 0.90 - 1.20 INR | [facility] | | | | PT INR | | DEPARTMENT | | | | Therapeutic ranges for | | OF | | | | full | | PATHOLOGY | | | | anticoagulation: | | | | | | INR for | | | | | | Venous | | | | | | Thromboembolism | | | | | | | | | | | | (2.0-3.0)INR | | | | | | INR for most | | | | | | patients with mech. | | | | | | valves (2.5-3.5)I | | | | | | NR | | | | + + + + + + + + | Specimen | + + | | + + + + + + + | Performing | Address | City/State/Zipcode | Phone Number | | Organization | | | | + + + + + | [facility] | [address] | [place] [address] | | | PATHOLOGY | [address] | | | + + + + + | [facility] | [address] | [place] [address] | | | PATHOLOGY | [address] | | | + + + + + APTT (ACT. PART. THROMBO TIME) (08/22/2006 5:41 PM PDT) + + + + + + | Component | Value | Ref Range | Performed | Pathologist | | | | | At | Signature | + + + + + + | APTT | 19.0 (L)Comment: | 26.0 - 36.0 | [facility] | | | | APTT | seconds | DEPARTMENT | | | | Therapeutic | | OF | | | | Range | | PATHOLOGY | | | | | | | | | | (75-120)sec | | | | | | Hepa | | | | | | rin levels of 0.35-0.7 | | | | | | U/mL | | | | + + + + + + + + | Specimen | + + | | + + + + + + + | Performing | Address | City/State/Zipcode | Phone Number | | Organization | | | | + + + + + | [facility] | [address] | [place] [address] | | | PATHOLOGY | [address] | | | + + + + + | [facility] | [address] | [place] [address] | | | PATHOLOGY | [address] | | | + + + + + BASIC METABOLIC SET (08/22/2006 5:41 PM PDT) + + + + + + | Component | Value | Ref Range | Performed | Pathologist | | | | | At | Signature | + + + + + + | GLUCOSE, | 86Comment: | 60 - 99 mg/dL | [facility] | | | PLASMA | Reference range change | | DEPARTMENT | | | (LAB) | for Glucose, Plasma | | OF | | | | effective 08/09/06. | | PATHOLOGY | | + + + + + + | BUN, PLASMA | 3 (L) | 6 - 20 mg/dL | [facility] | | | (LAB) | | | DEPARTMENT | | | | | | OF | | | | | | PATHOLOGY | | + + + + + + | CREATININE | 0.7 | 0.7 - 1.3 mg/dL | [facility] | | | PLASMA | | | DEPARTMENT | | | (LAB) | | | OF | | | | | | PATHOLOGY | | + + + + + + | SODIUM, | 139 | 136 - 145 | [facility] | | | PLASMA | | mmol/L | DEPARTMENT | | | (LAB) | | | OF | | | | | | PATHOLOGY | | + + + + + + | POTASSIUM, | 5.0 | 3.5 - 5.1 | [facility] | | | PLASMA | | mmol/L | DEPARTMENT | | | (LAB) | | | OF | | | | | | PATHOLOGY | | + + + + + + | CHLORIDE, | 101 | 98 - 107 mmol/L | [facility] | | | PLASMA | | | DEPARTMENT | | | (LAB) | | | OF | | | | | | PATHOLOGY | | + + + + + + | TOTAL CO2, | 33 (H) | 23 - 29 mmol/L | [facility] | | | PLASMA | | | DEPARTMENT | | | (LAB) | | | OF | | | | | | PATHOLOGY | | + + + + + + | CALCIUM, | 8.7 | 8.5 - 10.5 | [facility] | | | PLASMA | | mg/dL | DEPARTMENT | | | (LAB) | | | OF | | | | | | PATHOLOGY | | + + + + + + + + | Specimen | + + | | + + + + + + + | Performing | Address | City/State/Zipcode | Phone Number | | Organization | | | | + + + + + | [facility] | [address] | [place] [address] | | | PATHOLOGY | [address] | | | + + + + + | [facility] | [address] | [place] [address] | | | PATHOLOGY | [address] | | | + + + + + documented in this encounter Visit Diagnoses Not on filedocumented in this encounter"
--- OUTSIDE RECORDS SUMMARY | ~2018-09-20 | XMS | Encounter Summary ---
Demographics + + + | Address | [address] | | | [place] [address] | + + + | Home Phone | | + + + | Preferred Language | Unknown | + + + | Marital Status | Single | + + + | Temple Affiliation | Unknown | + + + | Race | White | + + + | Ethnic Group | Not or | + + + Author + + + | Author | [facility] | + + + | Organization | [facility] | + + + | Address | Unknown | + + + | Phone | Unavailable | + + + Support + + + + + | Name | Relationship | Address | Phone | + + + + + | Shauna Mays | ECON | [address] | | | | | [place] [address] | | + + + + + Care Team Providers + +------+ + | Care Value Advisor Name | Role | Phone | + +------+ + PCP | Unavailable | + +------+ + Encounter Details +--------+ + + + + | Date | Type | Department | Care Team | Description | +--------+ + + + + | 02/13/ | Results | Registration [id number] | | | | 1993 | Only | Benjy Shafer | | | | | | [facility] Mailcode: | | | | | | [address] [place], [place] | | | | | | [address] | | | | | | [phone] | | | +--------+ + + + [...] | + +--------+ + + + | MICROBIOLOGY TESTS 1 | Routin | 03/27/1994 | | Results for this | | | e | 2:43 PM | | procedure are in the | | | | PST | | results section. | + +--------+ + + + | CBC TESTS 2 | Routin | 02/13/1994 | | Results for this | | | e | 12:43 PM | | procedure are in the | | | | PDT | | results section. | + +--------+ + + + | COAGULATION TESTS 2 | Routin | 02/13/1994 | | Results for this | | | e | 12:43 PM | | procedure are in the | | | | PDT | | results section. | + +--------+ + + + documented in this encounter Results MICROBIOLOGY TESTS 1 (03/27/1994 2:43 PM PST) + + + + + + | Component | Value | Ref Range | Performed | Pathologist | | | | | At | Signature | + + + + + + | CULTURE | Gram | | | | | RESULT | Smear:OrgA NO | | | | | | ORGANISMS | | | | | | SEEN | | | | | | WBC 1+ | | | | | | Epi | | | | | | 1+Diagnosis | | | | | | NOT | | | | | | INDICATEDTest | | | | | | Ordered | | | | | | EXUDATE CULTUREOrdering | | | | | | Loc | | | | | | [id number] Set Up | | | | | | Date 03/27Spec Set | | | | | | Up Time | | | | | | 14:43Specimen | | | | | | Type SWAB | | | | | | ABDOMINAL WOUNDReport | | | | | | Status FINALD | | | | | | ate Of Final | | | | | | Re [id number] | | | | | | ATE 01ISOLATE 01Final | | | | | | Isolate 1+ | | | | | | GRAM POSITIVE | | | | | | GROWTHFinal | | | | | | Isolate 1+ | | | | | | STAPHYLOCOCCUS COAGULASE | | | | | | NEGATIVE | | | | + + + + + + + + | Specimen | + + | | + + + + + + + | Performing | Address | City/State/Zipcode | Phone Number | | Organization | | | | + + + + + | [facility] | [address] | [place] [address] | | | PATHOLOGY | [address] | | | + + + + + COAGULATION TESTS 2 (02/13/1994 12:43 PM PDT) + + + + + + | Component | Value | Ref Range | Performed | Pathologist | | | | | At | Signature | + + + + + + | PROTHROMBIN | 12.4 | SECONDS | | | | TIME | | | | | + + + + + + | PROTIME | 1. | SECONDS | | | | RATIO | | | | | + + + + + + | PROTHROMBIN | 1.1 | INR | | | | INR | | | | | + + + + + + + + | Specimen | + + | | + + + + + + + | Performing | Address | City/State/Zipcode | Phone Number | | Organization | | | | + + + + + | [facility] | [address] | [place] [address] | | | PATHOLOGY | [address] | | | + + + + + CBC TESTS 2 (02/13/1994 12:43 PM PDT) + + + + + + | Component | Value | Ref Range | Performed | Pathologist | | | | | At | Signature | + + + + + + | WHITE CELL | 9.1 | K/CU MM | | | | COUNT | | | | | + + + + + + | RED CELL | 4.89 | M/CU MM | | | | COUNT | | | | | + + + + + + | HEMOGLOBIN | 13.5 | GM/DL | | | + + + + + + | HEMATOCRIT | 39.9 (H) | % | | | + + + + + + | MCV | 81.6 (L) | FL | | | + + + + + + | MCH | 27.7 (L) | PG | | | + + + + + + | MCHC | 33.9 | GM/DL | | | + + + + + + | RDW | 13.2 | % | | | + + + + + + | PLATELET | 341. | K/CU MM | | | | COUNT | | | | | + + + + + + | MPV | 8. | [place] | | | + + + + + + + + | Specimen | + + | | + + + + + + + | Performing | Address | City/State/Zipcode | Phone Number | | Organization | | | | + + + + + | [facility] | [address] | [place] [address] | | | PATHOLOGY | [address] | | | + + + + + documented in this encounter Visit Diagnoses Not on filedocumented in this encounter"
--- OUTSIDE RECORDS SUMMARY | ~2018-09-20 | XMS | Encounter Summary ---
Demographics + + + | Address | [address] | | | [place] [address] | + + + | Home Phone | | + + + | Preferred Language | Unknown | + + + | Marital Status | Single | + + + | Moravian Affiliation | Unknown | + + + | Race | White | + + + | Ethnic Group | Not or | + + + Author + + + | Author | [facility] | + + + | Organization | [facility] | + + + | Address | Unknown | + + + | Phone | Unavailable | + + + Support + + + + + | Name | Relationship | Address | Phone | + + + + + | Shauna Mays | ECON | [address] | | | | | [place] [address] | | + + + + + Care Team Providers + +------+ + | Care Clinical Informaticist Name | Role | Phone | + +------+ + PCP | Unavailable | + +------+ + Encounter Details +--------+ + + + + | Date | Type | Department | Care Team | Description | +--------+ + + + + | 08/23/ | Discharge | UNKNOWN DEPARTMENT | Summary, Ed | D/C Summary ODDS | | 2006 | Summary-Tra | [address] | Observation Unit | | | | nscribed | [facility] | | | | | | [place], [place] | | | | | | [address] | | | +--------+ + + + [...] + + documented as of this encounter Discharge Summaries Interface, Library Page In - 09/29/2006 2:30 AM PDT [id number] NICK ECHEVARRIA [id number] OBS Unit Admission Date: 08/23/2006 Discharge/Hospital Admission Date: 08/23/2006 The patient denies primary care physician. ED OBS Unit Physician: Campbell Toledo M.D. OBS Unit Instructor: Rosario Woods Principal Final Diagnosis: Gastrointestinal bleeding. Additional Diagnoses: History of gastric bypass in 2000, gastric banding ulceration/erosion, back pain, bilateral hip surgery, obesity, substance abuse, and tobacco abuse. Principal Procedure: EGS consultation. Additional Procedures: Protonix drip, IV/PO analgesia, antiemetics, CBC with differential, BMS, lipase, INR, APTT, and serial hematocrits. Reason for OBS Unit Admission: GI bleed. OBS Unit Course: This young man was transferred from [facility] after receiving 4 units of blood secondary to a GI bleed that started on Sunday with associated abdominal pain, nausea, vomiting, and melena. The patient received 4 units of blood and was transferred to [facility] for a possible repair of a gastric banding erosion; however, no beds were available, and the patient was evaluated in the Emergency Department and admitted to the observation unit under the Surgery Team awaiting allocation of a bed and possible surgery. On evaluation this morning, the patient reports that he has had no vomiting or no black-colored stool since Sunday. He has a small bit of epigastric pain but otherwise denies any other complaints. He was told by a Surgery resident that he would not be having surgery until next week and after this apparently became upset and concerned and indicated that they wanted to leave if they were not getting the appropriate treatment. We discussed the case with the Family resident including mother, stepfather, sister, and patient, and explained that we would do everything we could to see to find out what the General Surgery's plan of care would be and find out what the timeline would be and what their option; this patient's options are given. The decision from General Surgery after discussing with Surgery discovered that there was no emergent need for surgery at this time and that the soonest surgery performed would be next week as there was no active bleeding at this time. After this discussion, the patient and family contacted the surgeon in [place], [place], Dr. Bruce, and that he would be willing to see the patient in [place] today and provide appropriate treatment based on the findings, and the patient was discharged to home to drive with his family to [place], [place]. Physical Examination: This is a 21-year-old male in no acute distress. Vital Signs: Temperature 36.6, pulse 76, respiratory rate 20, and blood pressure 114/61. HEENT: Normocephalic. Sclerae are clear. No icterus. Oropharynx moist and pink. No lesions. Neck: Supple. No lymphadenopathy. CV: Heart rate regular. S1/S2 audible. No murmurs, thrills, gallops, or rubs. Respiratory: Lungs are clear to auscultation bilaterally with good air movement throughout lung gleason. No respiratory distress. Abdomen: Soft, tender. There is mild bleed just to the epigastric area. No rebound tenderness. No guarding. No HSM. No masses. Positive bowel tones x4 quadrants. Skin: Slightly pale, warm, and dry. Neurologic: Alert and oriented x3. Gait is steady. Laboratory Data: Basic metabolic set collected on August 02, 2006, showed a sodium of 139, potassium 5.0, chloride 101, bicarbonate 33, BUN 3.0, creatinine 0.7, calcium was 8.7. Lipase was slightly low at 16. CBC showed a white count of 5.4, hemoglobin of 11.1, and hematocrit 32.4 at midnight and 32.7 this morning. INR was 1.16 and APTT was 19.0. Imaging: The patient had some imaging studies done at another facility that showed erosion and ulceration of the gastric banding. EKG none. Consultation: General Surgery Team. Case management, Christine Britt. Condition on Discharge/Hospital Admission: Fair and satisfactory and stable as the patient had had no episodes of bleeding or melena reported since Sunday. Discharge Medication(s): No medications or prescriptions were written on discharge. Discharge Instruction(s): The patient will drive to [place] and see Dr. Bruce as discussed with the family in the presence of the rifle case repairer. Discharge Followup: As per Dr. Bruce. Discharge Disposition: This patient was discharged to home. Rosario Woods M.D. HB / HS [id number] / [id number] / [id number] / cc: * [place] Reviewed or Edited By Maria Ines Wilhelm [facility] on 08-27-2006 Electronically signed by Campbell Toledo 09-28-2006 05:34:25 AM documented in this encounter Plan of Treatment Not on filedocumented as of this encounter Visit Diagnoses Not on filedocumented in this encounter"
--- OUTSIDE RECORDS SUMMARY | ~2018-09-20 | XMS | Encounter Summary ---
Demographics + + + | Address | [address] | | | [place] [address] | + + + | Home Phone | | + + + | Preferred Language | Unknown | + + + | Marital Status | Single | + + + | Faith Affiliation | Unknown | + + + | Race | White | + + + | Ethnic Group | Not or | + + + Author + + + | Author | [facility] | + + + | Organization | [facility] | + + + | Address | Unknown | + + + | Phone | Unavailable | + + + Support + + + + + | Name | Relationship | Address | Phone | + + + + + | Shauna Mays | ECON | [address] | | | | | [place] [address] | | + + + + + Care Team Providers + +------+ + | Care Clam Shucker Name | Role | Phone | + [...] Gigi Shafer | | | | | [facility] | [address] [place], | | | | | Mailcode: [address] | [place] [address] | | | | | Physician's Es | | | | | | [place], [place] | | | | | | [address] | | | | | | [phone] | | | +--------+ + + + [...] | | + +---------+ + + | [facility] DEPARTMENT OF | | | | | RADIOLOGY | | | | + +---------+ + + documented in this encounter Visit Diagnoses Not on filedocumented in this encounter"
--- OUTSIDE RECORDS SUMMARY | ~2018-09-20 | XMS | Encounter Summary ---
Demographics + + + | Address | [address] | | | [place] [address] | + + + | Home Phone | | + + + | Preferred Language | Unknown | + + + | Marital Status | Single | + + + | Rastafari Affiliation | Unknown | + + + | Race | White | + + + | Ethnic Group | Not or | + + + Author + + + | Author | [facility] | + + + | Organization | [facility] | + + + | Address | Unknown | + + + | Phone | Unavailable | + + + Support + + + + + | Name | Relationship | Address | Phone | + + + + + | Shauna Mays | ECON | [address] | | | | | [place] [address] | | + + + + + Care Team Providers + +------+ + | Care Change Management Specialist Name | Role | Phone | + +------+ + PCP | Unavailable | + +------+ + Encounter Details +--------+ + + + + | Date | Type | Department | Care Team | Description | +--------+ + + + + | 03/27/ | Office | UNKNOWN DEPARTMENT | Note, Outpatient | Progress Note | | 1993 | Visit-Trans | [address] [facility] | Clinic | | | | zhane | [facility] | | | | | | [place], [place] | | | | | | [address] | | | +--------+ + + + [...] as of this encounter Progress Notes Interface, Serging Machine Operator Automatic In - 08/24/2006 5:02 AM PDT CLINIC DATE: 03/27/94 PEDIATRIC UROLOGY CLINIC REASON FOR CLINIC VISIT: Follow up right inguinal exploration for possible communicating hydrocele and right scrotal orchidopexy. SUBJECTIVE: Maximo did well postoperatively with essentially no postoperative pain. Unfortunately, he developed some swelling/bruising in the immediate postoperative period. This was gradually resolving until yesterday, at which time he was noted to have significant erythema and some spontaneous drainage of some fluid from the wound. He presents today for further evaluation. He is completely afebrile. He is active and has no significant pain. OBJECTIVE: There is an area of erythema without significant induration approximately 3-4 cm around the inferior portion of the right inguinal wound. There is no continuity with the scrotum. The scrotum is entirely unremarkable with bilateral testes palpable. The right scrotal incision is well healed. There is some seropurulent fluid drainage from the medial aspect of the right inguinal wound. The wound is anesthetized with 1% topical Lidocaine and opened along the medial edge for approximately 3 cm. The wound is palpated and no continuity noted inferiorly. Approximately 3 cc of seropurulent fluid was drained and sent for culture. The Saeid's fascia was palpably intact. The wound was packed with 1/4 inch Iodoform Nu-Gauze. ASSESSMENT: Postoperative seroma with superficial wound infection in this obese patient with borderline diabetes. PLAN: Definitive drainage today. T.i.d. dressing changes with Nu-Gauze. Daily sitz baths. A week long course of Velosef 250 mg p.o. q.i.d. The patient and mother were instructed on how to perform dressing changes. They will follow up with us in one week if things have not changed significantly. If they continue to do well, they will call us and reschedule for a three-week postoperative visit instead. Krunal Garrison M.D. Resident, Urology Allan Napier M.D. Loading Unit Operator Seating, Urology DV :bruce documented in this encounter Plan of Treatment Not on filedocumented as of this encounter Visit Diagnoses Not on filedocumented in this encounter"
--- OUTSIDE RECORDS SUMMARY | ~2018-09-20 | XMS | Clinical Summary ---
Demographics + + + | Address | [address] | | | [place] [address] | + + + | Home Phone | | + + + | Preferred Language | Unknown | + + + | Marital Status | Single | + + + | Orthodoxy Affiliation | Unknown | + + + | Race | White | + + + | Ethnic Group | Not or | + + + Author + + + | Organization | Unknown | + + + | Address | Unknown | + + + | Phone | Unavailable | + + + Support + + + + + | Name | Relationship | Address | Phone | + + + + + | Shauna Mays | ECON | [address] | | | | | [place] [address] | | + + + + + Care Team Providers + +------+ + | Care Oleomargarine Maker Name | Role | Phone | + +------+ + PP | Unavailable | + +------+ + Source Comments YANG is fully live on both [facility] and [facility] InPatient[facility] Allergies Not on File Medications Not on file Active Problems Not on file Social History + +-------+ +--------+------+ | Tobacco [...] recent travel history available. | + + Plan of Treatment + + + + + | Health Maintenance | Due Date | Last Done | Comments | + + + + + | Influenza (Flu) | | | | | vaccination (Season | 9 | | | | Ended) | | | | + + + + + Results Not on filefrom Last 3 Months"
--- OUTSIDE RECORDS SUMMARY | ~2018-09-20 | XMS | Encounter Summary ---
Demographics + + + | Address | [address] | | | [place] [address] | + + + | Home Phone | | + + + | Preferred Language | Unknown | + + + | Marital Status | Single | + + + | Amish Affiliation | Unknown | + + + | Race | White | + + + | Ethnic Group | Not or | + + + Author + + + | Author | [facility] | + + + | Organization | [facility] | + + + | Address | Unknown | + + + | Phone | Unavailable | + + + Support + + + + + | Name | Relationship | Address | Phone | + + + + + | Shauna Mays | ECON | [address] | | | | | [place] [address] | | + + + + + Care Team Providers + +------+ + | Care Poultry Hanger Name | Role | Phone | + +------+ + PCP | Unavailable | + +------+ + Encounter Details +--------+ + + + + | Date | Type | Department | Care Team | Description | +--------+ + + + + | 03/27/ | Office | UNKNOWN DEPARTMENT | Note, Outpatient | Progress Note | | 1993 | Visit-Trans | [address] [facility] | Clinic | | | | zhane | [facility] | | | | | | [place], [place] | | | | | | [address] | | | +--------+ + + + [...] as of this encounter Progress Notes Interface, Curtain Inspector In - 08/24/2006 5:02 AM PDT CLINIC [...] Garrison M.D. Resident, Urology Allan Napier M.D. Package Dye Stand Loader, Urology DV :bruce documented in this encounter Plan of Treatment Not on filedocumented as of this encounter Visit Diagnoses Not on filedocumented in this encounter"
--- OUTSIDE RECORDS SUMMARY | ~2018-09-20 | XMS | Encounter Summary ---
Demographics + + + | Address | [address] | | | [place] [address] | + + + | Home Phone [...] Author + + + | Author | [facility] | + + + | Organization | [facility] | + + + | Address | Unknown | + + + | Phone | Unavailable | + + + Support + + + + + | Name | Relationship | Address | Phone | + + + + + | Shauna Mays | ECON | [address] | | | | | [place] [address] | | + + + + + Care Team Providers + +------+ + | Care Lead Ingot Molder Name | Role | Phone | + +------+ + PCP | Unavailable | + +------+ + Encounter Details +--------+ + + + + | Date | Type | Department | Care Team | Description | +--------+ + + + + | 08/19/ | Results | Registration [id number] | | | | 1995 | Only | Benjy Shafer | | | | | | [facility] Mailcode: | | | | | | [address] [place], [place] | | | | | | [address] | | | | | | [phone] | | | +--------+ + + + [...] | + +--------+ + + + | IMMUNOLOGY TESTS 1 | Routin | 09/11/1995 | | Results for this | | | e | 2:45 PM | | procedure are in the | | | | PDT | | results section. | + +--------+ + + + | MISCELLANEOUS | Routin | 09/11/1995 | | Results for this | | CHEMISTRY TESTS | e | 2:45 PM | | procedure are in the | | | | PDT | | results section. | + +--------+ + + + | MISCELLANEOUS | Routin | 09/11/1995 | | Results for this | | CHEMISTRY TESTS | e | 2:45 PM | | procedure are in the | | | | PDT | | results section. | + +--------+ + + + | MISCELLANEOUS | Routin | 09/11/1995 | | Results for this | | CHEMISTRY TESTS | e | 2:45 PM | | procedure are in the | | | | PDT | | results section. | + +--------+ + + + | MISCELLANEOUS | Routin | 08/20/1995 | | Results for this | | CHEMISTRY TESTS | e | 8:36 PM | | procedure are in the | | | | PDT | | results section. | + +--------+ + + + | CHEMISTRY TESTS 4 | Routin | 08/20/1995 | | Results for this | | | e | 10:45 AM | | procedure are in the | | | | PDT | | results section. | + +--------+ + + + documented in this encounter Results MISCELLANEOUS CHEMISTRY TESTS (09/11/1995 2:45 PM PDT) + + + + + + | Component | Value | Ref Range | Performed | Pathologist | | | | | At | Signature | + + + + + + | MISCELLANEO | REFERRED TO ENDOCRINE | | | | | US REFERRAL | SCIENCES | | | | | TEST - | | | | | | HEADER | | | | | + + + + + + | MISC REF | IGF BP-3 | | | | | TEST NAME | | | | | + + + + + + | MISC REF | 2.6 | | | | | TEST RESULT | | | | | + + + + + + | MISC REF | MG/L | | | | | TEST UNITS | | | | | + + + + + + | NORMAL | 11-13 YEARS: 2.1-6.2 | | | | | RANGE | | | | | + + + + + + + + | Specimen | + + | | + + + + + + + | Performing | Address | City/State/Zipcode | Phone Number | | Organization | | | | + + + + + | [facility][1] | [address] | [place] [address] | | | PATHOLOGY | [address] | | | + + + + + MISCELLANEOUS CHEMISTRY TESTS (09/11/1995 2:45 PM PDT) + + + + + + | Component | Value | Ref Range | Performed | Pathologist | | | | | At | Signature | + + + + + + | MISCELLANEO | REFERRED TO ENDOCRINE | | | | | US REFERRAL | SCIENCES | | | | | TEST - | | | | | | HEADER | | | | | + + + + + + | MISC REF | IGF-1 | | | | | TEST NAME | | | | | + + + + + + | MISC REF | 123. | | | | | TEST RESULT | | | | | + + + + + + | MISC REF | NG/ML | | | | | TEST UNITS | | | | | + + + + + + | NORMAL | 11-12 YEARS: 180-440 | | | | | RANGE | | | | | + + + + + + + + | Specimen | + + | | + + + + + + + | Performing | Address | City/State/Zipcode | Phone Number | | Organization | | | | + + + + + | [facility][1] | [address] | [place] [address] | | | PATHOLOGY | [address] | | | + + + + + IMMUNOLOGY TESTS 1 (09/11/1995 2:45 PM PDT) + + + + + + | Component | Value | Ref Range | Performed | Pathologist | | | | | At | Signature | + + + + + + | CORTISOL, | 5. | ug/dL | | | | TOTAL SERUM | | | | | + + + + + + + + | Specimen | + + | | + + + + + + + | Performing | Address | City/State/Zipcode | Phone Number | | Organization | | | | + + + + + | [facility][1] | [address] | [place] [address] | | | PATHOLOGY | [address] | | | + + + + + MISCELLANEOUS CHEMISTRY TESTS (09/11/1995 2:45 PM PDT) + + + + + + | Component | Value | Ref Range | Performed | Pathologist | | | | | At | Signature | + + + + + + | TSH | 1.3 | mIU/ML | | | + + + + + + | FREE T4, | 1.1 | ng/dL | | | | SERUM | | | | | + + + + + + | FSH,SERUM | 1. | mIU/ML | | | + + + + + + | LUTEINIZING | 1. | mIU/ML | | | | | | | | | | HORMONE,SER | | | | | | UM | | | | | + + + + + + + + | Specimen | + + | | + + + + + + + | Performing | Address | City/State/Zipcode | Phone Number | | Organization | | | | + + + + + | [facility][1] | [address] | [place] [address] | | | PATHOLOGY | [address] | | | + + + + + MISCELLANEOUS CHEMISTRY TESTS (08/20/1995 8:36 PM PDT) + +-------+ + + + | Component | Value | Ref Range | Performed | Pathologist | | | | | At | Signature | + +-------+ + + + | TESTOSTERON | <20 | ng/dL | | | | E, SERUM | | | | | + +-------+ + + + + + | Specimen | + + | | + + + + + + + | Performing | Address | City/State/Zipcode | Phone Number | | Organization | | | | + + + + + | [facility][1] | [address] | [place] [address] | | | PATHOLOGY | [address] | | | + + + + + CHEMISTRY TESTS 4 (08/20/1995 10:45 AM PDT) + + + + + + | Component | Value | Ref Range | Performed | Pathologist | | | | | At | Signature | + + + + + + | GLUCOSE,WHO | 98. | mg/dL | | | | LE BLOOD | | | | | + + + + + + + + | Specimen | + + | | + + + + + + + | Performing | Address | City/State/Zipcode | Phone Number | | Organization | | | | + + + + + | [facility][1] | [address] | [place] [address] | | | PATHOLOGY | [address] | | | + + + + + documented in this encounter Visit Diagnoses Not on filedocumented in this encounter"
--- OUTSIDE RECORDS SUMMARY | ~2018-09-20 | XMS | Encounter Summary ---
Demographics + + + | Address | [address] | | | [place] [address] | + + + | Home Phone [...] + + + | Author | [facility] | + + + | Organization | [facility] | + + + | Address | Unknown | + + + | Phone | Unavailable | + + + Support + + + + + | Name | Relationship | Address | Phone | + + + + + | Shauna Mays | ECON | [address] | | | | | [place] [address] | | + + + + + Care Team Providers + +------+ + | Care Golf Technician Name | Role | Phone | + +------+ + PCP | Unavailable | + +------+ + Encounter Details +--------+ + + + + | Date | Type | Department | Care Team | Description | +--------+ + + + + | 08/20/ | Transcribed | Allergy Clinic at | Dictation, Other | Transcribed | | 1996 | | [facility] [address] | | | | | | [facility] | | | | | | Mailcode: [id number] | | | | | | [address] | | | | | | Building [place], | | | | | | [place] [address] | | | | | | [phone] | | | +--------+ + + + [...] as of this encounter Progress Notes Interface, Charge Account Identification Clerk In - 06/29/2006 3:09 AM PST [address] [address] or August 20, 1996 KAIT PAGE MD [address] [place] [address] RE:Maximo Mays MR#:[id number] Page: Thank you for carrying out the fasting blood cortisol measurement on Maximo. His cortisol of 1.2 UG/dl, following 1 mg of Dexamethasone the previous night at bedtime, is normally suppressed and rules out Jose's syndrome. 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 I plan to see him again in the [facility] in six months. Again, thank you for your help in evaluating Maximo. Sincerely, Maciel Baltazar M.D. Professor, Pediatrics Director, Pediatric Endocrinology ANDER/melanie documented in this encounter Plan of Treatment Not on filedocumented as of this encounter Visit Diagnoses Not on filedocumented in this encounter"
--- OUTSIDE RECORDS SUMMARY | ~2018-09-20 | XMS | Encounter Summary ---
Demographics + + + | Address | [address] | | | [place] [address] | + + + | Home Phone | | + + + | Preferred Language | Unknown | + + + | Marital Status | Single | + + + | Sikhism Affiliation | Unknown | + + + | Race | White | + + + | Ethnic Group | Not or | + + + Author + + + | Author | [facility] | + + + | Organization | [facility] | + + + | Address | Unknown | + + + | Phone | Unavailable | + + + Support + + + + + | Name | Relationship | Address | Phone | + + + + + | Shauna Mays | ECON | [address] | | | | | [place] [address] | | + + + + + Care Team Providers + +------+ + | Care Firer Helper Name | Role | Phone | + +------+ + PCP | Unavailable | + +------+ + Encounter Details +--------+ + + + + | Date | Type | Department | Care Team | Description | +--------+ + + + + | 05/13/ | Office | [facility] | Report, Outpatient | Progress Note | | 1996 | Visit-Trans | & Rehabilitation | Consultation | | | | cribed | [address] | | | | | | [address] | | | | | | Mailcode: [id number] | | | | | | [facility] | | | | | | [place], [place] | | | | | | [address] | | | | | | [phone] | | | +--------+ + + + [...] as of this encounter Progress Notes Interface, Adjunct Professor Of U.S. History In - 07/06/2006 6:47 AM PST CLINIC DATE: 05/13/96 CLINIC NAME: DISCIPLINE: ORTHOPEDICS Maximo is now 12+10 years old. He was seen in conjunction with Dr. Baltazar today. I followed him in the past for his bilateral slipped capitofemoral epiphyses. Generally, Maximo has been getting along quite well. He is playing basketball. He has complained of diffused left knee pain after periods of playing basketball. His exam shows that his leg lengths are equal when he is walking, he has a very slight abductor lurch on the left side when compared with the right. His range of motion shows that he has full flexion on both sides. The left side has a tendency to roll into external rotation on full flexion. He has abduction to 50 degrees bilaterally in extension. Rotational profile in extension, internal rotation, right 60, left 40 degrees; external rotation, right 50, left 60 degrees. He was seen with Dr. Baltazar today who feels that there are few more things to be done for further workup. Blood draws were done today. X-rays: AP and frogged pelvis show maintenance in the position of his slipped capitofemoral epiphysis. The physes in the proximal femur are still open. Screw position appears to be good on both sides. IMPRESSION: Maximo continues to gain weight. 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 At present, with respect to his capitofemoral epiphysis, he is doing quite well. PLAN: No active intervention required. We will plan a followup in about six months' time in the [facility] with repeat x-rays. Devan Arora M.D. Forestry Aide, Orthopedics and Rehabilitation CHIRAG/christianne A cc: [facility]'s chart. [facility]'s scheduling desk. [email or web address], Adjunct Professor Of U.S. History In - 07/06/2006 6:47 AM [facility] CLINIC DATE: 05/13/96 CLINIC NAME[facility] DISCIPLINE: PEDIATRICS Maximo, now age 10 years 11 months, returns for evaluation and treatment of severe obesity and delayed pubertal development. Maximo's height plots along the 15-20th percentile. Maximo also has a past history of viral meningitis at age 1 years. At the time of Maximo's last evaluation on 09/11/95, endocrine studies included a free T4 of 1.1, TSH of 1.30, LH of 1.0, FSH of 1.0, PM cortisol of 5, and IgF1 of 123 (180-440), an IgF BP-3 of 2.6 (2.1 - 6.2), and a bone age x-ray read at 11-11.5 years, at a chronologic age of 12-12.5 years. Maximo's height has increased by 3.7 cm over the last eight months, equivalent to an annual growth rate of 5.5 cm per year. He gained 6.6 kg (14.8 pounds) over the same time interval. Maximo's only interval illness has been a cold. His mother states that he wets the bed nightly. Apparently he did this throughout childhood, was treated with some minerals which resulted in the discontinuation of bedwetting for two years. However, after his surgery for slipped capital femoral epiphyses at age 8 years, his bedwetting resumed. Maximo also complains of pain in his knees, particularly after running. PHYSICAL EXAMINATION: GENERAL: On physical examination today, Maximo measured 147.2 cm in height, at the 15-20th percentile, while he weighed 90.4 kg, approximately 5 standard deviations above the mean. Head circumference was 54 cm. GENERAL: General appearance was that of a somewhat short, severely obese 10-year-old. HEENT: Maximo had mild acanthosis nigricans at the back of the neck. He did not have any other obvious cutaneous problems. Examination of the eyes, ears, nose and throat was unremarkable. No goiter was palpable. LUNGS: Clear to auscultation bilaterally. HEART: No heart murmur was heard. ABDOMINAL: No abdominal organs or masses were palpable. : On genital examination, the penis was completely hidden in the suprapubic fat pad; when this was pushed back, it was prepubertal in size, approximately 4 x 1 cm. No pubic hair growth was present. The scrotal sac was normally developed and the testes were approximately 0.75 cc in volume bilaterally. BACK/EXTREMITIES: Examination was unremarkable. The fifth metacarpals appear somewhat short. The deep tendon reflexes were 1-2+. DIAGNOSTIC IMPRESSIONS: 1. Severe obesity. Maximo continues to gain weight at an abnormal rate. However, on questioning his mother, he continues to consume some high-calorie drinks and food, including regular soft drinks and fruit juices. 2. Height at the 15-20th percentile. While Maximo's height is within normal limits, and his growth velocity is normal, I remain concerned that he is on the short side, as compared to most youngsters with exogenous obesity who are tall. 3. Delayed pubertal development. Maximo has a prepubertal genital examination, with somewhat small testes even for a prepubertal boy. Laboratory studies in the past have excluded primary hypogonadism, with a normal LH and FSH. 4. History of slipped capital femoral epiphyses, with pinning at age 8 years. 5. Nighttime enuresis. RECOMMENDATIONS: 1. Routine urinalysis. 2. Blood for calcium and parathyroid hormone level to exclude pseudohypoparathyroidism. 3. 24-hour urine free cortisol to exclude [place] syndrome. I will ask the help of Dr. Mitchell Page, in [place], in obtaining the 24-hour urine and having a laboratory perform the free cortisol measurement. RECALL: I would like to see Maximo again in six months. 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 Maciel Baltazar M.D. Professor, Pediatrics Director, Pediatric Endocrinology ANDER/ray A cc: MITCHELL PAGE MD [address] [place] [id number] documented in this encounter Plan of Treatment Not on filedocumented as of this encounter Visit Diagnoses Not on filedocumented in this encounter"
--- OUTSIDE RECORDS SUMMARY | ~2018-09-20 | XMS | Encounter Summary ---
Demographics + + + | Address | [address] | | | [place] [address] | + + + | Home Phone [...] + + + + + | Shauna aMys | ECON | [address] | | | | | [place] [address] | | + + + + + Care Team Providers + +------+ + | Care Frame Table Operator Helper Name | Role | Phone | + +------+ + PCP | Unavailable | + +------+ + Encounter Details +--------+ + + + + | Date | Type | Department | Care Team | Description | +--------+ + + + + | 02/13/ | Office | UNKNOWN DEPARTMENT | Note, Outpatient | Progress Note | | 1993 | Visit-Trans | [address] [facility] | Clinic | | | | zhane | [facility] | | | | | | [place], [place] | | | | | | [address] | | | +--------+ + + + [...] as of this encounter Progress Notes Interface, Station Attendant In - 08/25/2006 5:12 AM PDT CLINIC [...] Garrison M.D. Resident, Urology Allan Napier M.D. [employer] Director Urology DV:re documented in this encounter Plan of Treatment Not on filedocumented as of this encounter Visit Diagnoses Not on filedocumented in this encounter"
--- OUTSIDE RECORDS SUMMARY | ~2018-09-20 | XMS | Encounter Summary ---
Demographics + + + | Address | [address] | | | [place] [address] | + + + | Home Phone | | + + + | Preferred Language | Unknown | + + + | Marital Status | Single | + + + | Zoroastrian Affiliation | Unknown | + + + | Race | White | + + + | Ethnic Group | Not or | + + + Author + + + | Author | [facility] | + + + | Organization | [facility] | + + + | Address | Unknown | + + + | Phone | Unavailable | + + + Support + + + + + | Name | Relationship | Address | Phone | + + + + + | Shauna Mays | ECON | [address] | | | | | [place] [address] | | + + + + + Care Team Providers + +------+ + | Care Salesperson Used Cars Name | Role | Phone | + +------+ + PCP | Unavailable | + +------+ + Encounter Details +--------+ + + + + | Date | Type | Department | Care Team | Description | +--------+ + + + + | 09/10/ | Office | [facility] | Report, Outpatient | Progress Note | | 1995 | Visit-Trans | & Rehabilitation | Consultation | | | | cribed | [address] | | | | | | [address] | | | | | | Mailcode: [id number] | | | | | | [facility] | | | | | | [place], [place] | | | | | | [address] | | | | | | [phone] | | | +--------+ + + + [...] as of this encounter Progress Notes Interface, Md Allergy Immunology In - 07/26/2006 5:05 AM PDT CLINIC DATE: 09/11/95 CLINIC NAME: [facility] DISCIPLINE: PEDIATRIC ENDOCRINOLOGY REPORT Maximo, age 10 years, 2 months, was referred by Dr. Devan Arora, from the [facility], for evaluation of excessive weight gain associated with small genital size and absent pubertal development. As regards Maximo's excessive weight gain, by the mother's report he has been obese since infancy, by her recollection from plotting on [facility] growth curves. From the growth points we have, at age 8 years, 2 months, Maximo's height plotted at the 25th percentile, while his weight was above the 99th percentile. Currently, at age 10 years, 2 months, his height plots at approximately the 20th percentile, while again his weight plots above the 99th percentile. His growth velocity over the last two years is 4.9 cm per year, while he gained 11 kilograms per year over the same two-year time interval. Maximo and his family have tried to deal with excessive weight gain through diet and physical activity. Both parents have also been overweight (see family history below), and the family has been involved in [employer] treatments. However, Maximo's mother states that he is unable to stick to his diet, and she cannot always be around to monitor his caloric intake. Maximo is also described as a very active youngster, although with two surgeries for slipped capital femoral epiphysis (see below), this has interfered with his usual physical activity. As regards pubertal development, Maximo's mother states that the size of his penis has always been small for his body size. However, she admits that it actually is hidden in the fat pad above the penis. 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 By mother's report and Maximo's, he has not yet undergone any signs of pubertal development. Maximo was discovered to have bilateral slipped capital femoral epiphysis at age 8 years, 2 months, and subsequently underwent pinning on both sides. This apparently worked relatively well until a month ago when he again complained of pain in the hips. By mother's report, the most recent x-rays by Dr. Arora show that the pins had "broken", requiring a second surgery to remove them and replace them with larger pins. Maximo is still on crutches. PAST HISTORY: History: Maximo was the 8 pound 10.5 ounce, 20-21 inch product of a term gestation to his 2 para 2 mother. There were no complications. Developmental History: Normal, with milestones within the normal range of not early. Currently, Maximo is in the sixth grade and is described as a B and C student. PAST MEDICAL ILLNESSES: Maximo reportedly had viral meningitis at age [age] years. Injuries at age [age] years, he fractured his collar bone. REVIEW OF SYSTEMS: Maximo had enuresis in early morning babysitter, and this has recurred in the last month. FAMILY HISTORY: Mr. Mays reportedly is 6"1-2" in height, and weighs around 265 pounds. Mrs. Myas is 5'7" in height; she underwent menarche at age [age] years. At one time, her maximal weight was 350 pounds. She underwent gastric bypass, and now weighs 175-185 pounds. Maximo has a 13-year-old older brother who is around 5'7-8" and 190-195 pounds, while a 10-year-old sister is around 4'10" and is 150-155 pounds. There is no family history of late bloomers. On physical examination today, Maximo measured 143.5 cm in height, at the 20th percentile, while he weighed 83.8 kilograms, approximately five standard deviations above the mean. Head circumference was 53.3 cm. Maximo appeared to be generally obese. Examination of the skin was unremarkable, with no particular thinning or abnormal skin pigmentations. Examination of the eyes, ears, nose and throat was unremarkable; Maximo had 7 teeth in each quadrant, indicating that his 12-year molars had erupted. No goiter was palpable in the neck. The lungs were clear to auscultation. No heart murmur was heard. No abdominal organs or masses could be palpated. On examination of the genitalia, initially the penis was totally hidden in the suprapubic fat pad. However, when this was pushed back, it measured approximately 1.5 cm in diameter x 4-5 cm in length. The scrotal sack was prepubertal, with both testes 1-2 cc in volume bilaterally. Overall, Maximo was Irineo stage I with no pubic hair growth. Examination of the back and extremities was unremarkable, with no skeletal abnormalities. On neurologic examination, deep tendon reflexes were 1-2+. DIAGNOSTIC IMPRESSIONS: 1. OBESITY: By history, Maximo has been overweight since infancy, and has documented obesity from age 8 years. He has gained 11 kilograms per year over the last 2 years. There is a strong family history of obesity in both parents and a younger and older sibling. Thus, it is my impression that the most likely explanation for Maximo's obesity is familial (simple) obesity. However, Maximo's height plots at the 20th percentile, whereas most children with simple obesity tend to be tall for age. His recent growth velocity of 4.9 cm per year falls within the low average range. Obesity, together with a height below average, does raise the possibility of some endocrinopathy. 2. 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 By my examination, Maximo's genital penis is completely hidden within the suprapubic fat pad, and he otherwise has a normal prepubertal genital examination. 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 A recent serum testosterone level was less than 20 NG/DL; this is still within the normal range for a 10 year, 2 month old boy who has not yet started pubertal development. 3. BILATERAL SLIPPED CAPITAL FEMORAL EPIPHYSIS, STATUS POST PINNING AT AGE 8 YEARS, 2 MONTHS, AND AGAIN A MONTH AGO AT AGE 10 YEARS, 2 MONTHS FOR, BY HISTORY, VIRAL MENINGITIS AT AGE [age] YEARS. Previous laboratory studies have included: : T4 7.4; TSH 2.3; chemistry panel normal with exception of a cholesterol of 203; : CBC normal. 08-20-95: testosterone less than 20; blood glucose 98. RECOMMENDATIONS: 1. Free T4 and TSH. 2. Blood FSH and LH. 3. Blood cortisol. 4. Serum IGF-1 and IGF BP 3. 5. Bone age x-ray. If all of the above studies are normal (with the exception of delay in bone age), no further studies will be done. RECALL: I would like to see Maximo again in six months in Growth Clinic. Maciel Baltazar M.D. Professor, Pediatrics Director, Pediatric Endocrinology ANDER/nayely P cc: Devan Arora M.D. Loom Cleaner, Orthopedics and Rehabilitation [facility] documented in this encounter Plan of Treatment Not on filedocumented as of this encounter Visit Diagnoses Not on filedocumented in this encounter
--- OUTSIDE RECORDS SUMMARY | ~2018-09-20 | XMS | Encounter Summary ---
Demographics + + + | Address | [address] | | | [place] [address] | + + + | Home Phone | | + + + | Preferred Language | Unknown | + + + | Marital Status | Single | + + + | Oriental Orthodox Affiliation | Unknown | + + + | Race | White | + + + | Ethnic Group | Not or | + + + Author + + + | Author | [facility] | + + + | Organization | [facility] | + + + | Address | Unknown | + + + | Phone | Unavailable | + + + Support + + + + + | Name | Relationship | Address | Phone | + + + + + | Shauna Mays | ECON | [address] | | | | | [place] [address] | | + + + + + Care Team Providers + +------+ + | Care Talent Acquisition Sourcer Name | Role | Phone | + +------+ + PCP | Unavailable | + +------+ + Encounter Details +--------+ + + + + | Date | Type | Department | Care Team | Description | +--------+ + + + + | 03/10/ | Office | [facility] | Report, Outpatient | Progress Note | | 1996 | Visit-Trans | & Rehabilitation | Consultation | | | | cribed | [address] | | | | | | [address] | | | | | | Mailcode: [id number] | | | | | | [facility] | | | | | | [place], [place] | | | | | | [address] | | | | | | [phone] | | | +--------+ + + + [...] as of this encounter Progress Notes Interface, Central Supply Technician Supervisor In - 06/08/2006 5:09 AM PST CLINIC DATE: 03/10/97 CLINIC NAME: [facility] DISCIPLINE: PEDIATRIC ENDOCRINOLOGY Maximo, now age 11 years, 8 months, returns for evaluation and treatment of delayed pubertal development associated with severe obesity. Maximo also has a history of slipped capital femoral epiphysis with pinning at age 8 years. SUBJECTIVE: In general, Maximo has been in good health over the last year. His hip pins have not given him any further problems. His height increased by 5.0 cm over the last 10 months, equivalent to an annual rate of 6.0 cm/year. He continues to gain weight at an abnormal weight, gaining 5.2 kg over the same time interval. He and his parents continue to try and work on reducing caloric intake and increasing physical activity. Mom states that they are "about 50% successful" in reducing intake of calories. They have tried going to vegetables and fruits, for example. However, they admit that Maximo has difficulty sticking to his diet; for example, he drinks regular soft drinks at school. Whereas before, Maximo's physical activity was limited because of his slipped capital epiphysis, surgery, and problems with healing, lately he has been back to his usual physical activity level which is high. For example, he is active in basketball. There is a family history of obesity; dad is 6 feet in height and approximately 275 pounds. OBJECTIVE: Height 152. cm (at the 20th percentile), weight 95.6 kg (above the 99th percentile), and head circumference 54.25 cm. As before, Maximo has severe, generalized obesity. On genital exam, Maximo remains Irineo stage I. He has no pubic hair growth. The penis is completely hidden in the suprapubic fat pad. The testes are approximately 1 cc in volume bilaterally. The remainder of his examination is unchanged from before. DIAGNOSTIC IMPRESSION: 1. Pubertal delay. While this does not yet fall outside the range of normal (in the sense that two standard deviations carries out to 12 years of age), based on lack of any signs of puberty over the last two years, I think it is unlikely that Maximo will have spontaneous pubertal development by 12. It is also unusual that, although Maximo is significantly obese, he is somewhat short for his age growing at the 20th percentile. Laboratory studies in the past have shown normal thyroid function, normal IGF-1 and IGFBP-3, a bone age read at 11 to 11.5 years at chronologic age 10 to 12.5 years, while gonadotropins have been in the prepubertal range with an LH of 1 and an FSH of 1. Maximo was evaluated for Kenedy's syndrome; a p.m. cortisol was 5. This was followed up with a 24-hour free cortisol which was somewhat increased for age at 50 mcg. I therefore carried out an overnight 1 mg dexamethasone suppression test with an a.m. fasting cortisol of 1.2 ug/dl, in the normal range and excluding Kenedy's syndrome. 2. Obesity, severe. 3. History of slipped capital femoral epiphysis with pinning at age 8 years. 4. Nighttime enuresis. RECOMMENDATIONS: 1. Bone age x-ray: I read Maximo's bone age at 11-1/2 to 12 years for an average reading of 11.75 years, approximately 2 years delayed compared to his chronologic age. Thus, his bone age appears to be more delayed than previous readings. 2. Mrs. Mays asked about DDAVP treatment for his enuresis. I believe this is an issue that should be addressed by his family physician, Dr. Page, and I referred her back to him. 3. I would like to see Maximo again in six months, that is the spring. At that point, if he still has no signs of pubertal development, I think he is a candidate for a trial of Depo-Testosterone, "priming the puberty pump." Before that is undertaken, I think he should have an MRI of the brain and pituitary gland to exclude any hypothalamic pituitary abnormality. Maciel Baltazar M.D. Professor, Pediatrics Director, Pediatric Endocrinology SHL:sgr cc: KAIT PAGE MD [address], [address] [place] [address] documented in this encounter Plan of Treatment Not on filedocumented as of this encounter Visit Diagnoses Not on filedocumented in this encounter
--- OUTSIDE RECORDS SUMMARY | ~2018-09-20 | XMS | Encounter Summary ---
Demographics + + + | Address | [address] | | | [place] [address] | + + + | Home Phone | | + + + | Preferred Language | Unknown | + + + | Marital Status | Single | + + + | Religion Affiliation | Unknown | + + + | Race | White | + + + | Ethnic Group | Not or | + + + Author + + + | Author | [facility] | + + + | Organization | [facility] | + + + | Address | Unknown | + + + | Phone | Unavailable | + + + Support + + + + + | Name | Relationship | Address | Phone | + + + + + | Shauna Mays | ECON | [address] | | | | | [place] [address] | | + + + + + Care Team Providers + +------+ + | Care Bus Greaser Name | Role | Phone | + [...] Gigi Shafer | | | | | [facility] | [address] [place], | | | | | Mailcode: [address] | [place] [address] | | | | | Physician's Es | | | | | | [place], [place] | | | | | | [address] | | | | | | [phone] | | | +--------+ + + + [...] | | | | | | | [id number] | | | | | | BONE [...] | | + +---------+ + + | [facility] DEPARTMENT OF | | | | | RADIOLOGY | | | | + +---------+ + + documented in this encounter Visit Diagnoses Not on filedocumented in this encounter"
--- OUTSIDE RECORDS SUMMARY | ~2018-09-20 | XMS | Clinical Summary ---
Demographics + + + | Address | [address] | | | [place] [address] | + + + | Home Phone | | + + + | Preferred Language | Unknown | + + + | Marital Status | Single | + + + | Mandaeism Affiliation | Unknown | + + + | Race | Unknown | + + + | Ethnic Group | Unknown | + + + Author + + + | Author | [facility] | + + + | Organization | [facility] | + + + | Address | Unknown | + + + | Phone | Unavailable | + + + Support + + +---------+ + | Name | Relationship | Address | Phone | + + +---------+ + | Chloé Mays | ECON | Unknown | | + + +---------+ + Care Team Providers + +------+ + | Care Distillery Worker General Name | Role | Phone | + +------+ + | Dr. Malcolm | PP | Unavailable | + +------+ + Allergies Not on File Current Medications Not on file Active Problems Not [...] | + + + Plan of Treatment Not on file Results Not on filefrom Last 3 Months"
--- OUTSIDE RECORDS SUMMARY | ~2018-09-20 | XMS | Encounter Summary ---
Demographics + + + | Address | [address] | | | [place] [address] | + + + | Home Phone [...] Author + + + | Author | [facility] | + + + | Organization | [facility] | + + + | Address | Unknown | + + + | Phone | Unavailable | + + + Support + + + + + | Name | Relationship | Address | Phone | + + + + + | Shauna Mays | ECON | [address] | | | | | [place] [address] | | + + + + + Care Team Providers + +------+ + | Care Primer Boxer Name | Role | Phone | + [...] Unit | | | | nscribed | [facility] | | | | | | [place], [place] | | | | | | [address] | | | +--------+ + + + [...] as of this encounter Discharge Summaries Interface, Racket Stringer In - 09/29/2006 2:30 AM PDT [id number] NICK ECHEVARRIA [id number] OBS Unit Admission Date: 08/23/2006 Discharge/Hospital Admission [...] Course: This young man was transferred from [facility] after receiving 4 units of blood secondary to a GI bleed that started on Sunday with associated abdominal pain, nausea, vomiting, and melena. The patient received 4 units of blood and was transferred to [facility] for a possible repair of a gastric [...] patient and family contacted the surgeon in [place], [place], Dr. Bruce, and that he would be willing to see the patient in [place] today and provide appropriate treatment based on the findings, and the patient was discharged to home to drive with his family to [place], [place]. Physical Examination: This is a 21-year-old [...] Discharge Instruction(s): The patient will drive to [place] and see Dr. Bruce as discussed with the family in the presence of the counseling case manager. Discharge Followup: As per Dr. Bruce. Discharge Disposition: This patient was discharged to home. Rosario Woods M.D. HB / HS [id number] / [id number] / [id number] / cc: * Dr. [place]o [place], [place] Reviewed or Edited By Maria Ines Wilhelm [facility] on 08-27-2006 Electronically signed by Campbell Toledo 09-28-2006 05:34:25 AM documented in this encounter Plan of Treatment Not on filedocumented as of this encounter Visit Diagnoses Not on filedocumented in this encounter"
--- OUTSIDE RECORDS SUMMARY | ~2018-09-20 | XMS | Encounter Summary ---
Demographics + + + | Address | [address] | | | [place] [address] | + + + | Home Phone | | + + + | Preferred Language | Unknown | + + + | Marital Status | Single | + + + | Buddhism Affiliation | Unknown | + + + [...] | | | | | [place] [address] | | + + + + + Care Team Providers + +------+ + | Care Claim Adjuster Name | Role | Phone | + +------+ + PCP | Unavailable | + +------+ + Encounter Details +--------+ + + + + | Date | Type | Department | Care Team | Description | +--------+ + + + + | 08/22/ | ED Progress | UNKNOWN DEPARTMENT | Report, Emergency | ED Progress Note | | 2006 | | [address] | Services | | | | Note-Transc | [address] | | | | | jacky | [place], [place] | | | | | | [address] | | | +--------+ + + + [...]
--- OUTSIDE RECORDS SUMMARY | ~2018-09-20 | XMS | Encounter Summary ---
Demographics + + + | Address | [address] | | | [place] [address] | + + + | Home Phone [...] + + | Author | [facility] | + + + | Organization | [facility] | + + + | Address | Unknown | + + + | Phone | Unavailable | + + + Support + + + + + | Name | Relationship | Address | Phone | + + + + + | Shauna Mays | ECON | [address] | | | | | [place] [address] | | + + + + + Care Team Providers + +------+ + | Care Retail Special Event Associate Name | Role | Phone | + +------+ + PCP | Unavailable | + +------+ + Encounter Details +--------+ + + + + | Date | Type | Department | Care Team | Description | +--------+ + + + + | 03/17/ | Procedure - | UNKNOWN DEPARTMENT | Record, Operation | Operative Report | | 1993 | | [address] [facility] | | | | | Transcribed | [facility] | | | | | | [place], [place] | | | | | | [address] | | | +--------+ + + + [...] | + +--------+ + + + | OPERATION RECORD | | 03/17/1994 | | Results for this | | | | 12:00 AM | | procedure are in the | | | | PST | | results section. | + +--------+ + + + documented in this encounter Results OPERATION RECORD (03/17/1994 12:00 AM PST) + + | Procedure Note | + + | 03/17/1994 12:00 AM [facility] | | [facility] | | [address], [place] [address] | | | | [facility] | | | | | | OPERATION RECORD SHORT STAY | | | | Med Rec No.: [id number] Date: 03/17/94 | | | | Name: Maximo Mays | | | | | | ATTENDING SURGEON: Allan Napier M.D. | | Health Informatics Advisor, Urology | | | | TEST MANAGER(S): Krunal Garrison M.D. | | Resident, Urology | | | | PREOPERATIVE DIAGNOSIS(ES): Right nonpalpable testis. | | | | POSTOPERATIVE DIAGNOSIS(ES): Right undescended testis. | | Lipoma of the cord. | | | | OPERATION(S) PERFORMED: Right scrotal orchidopexy. | | Right inguinal exploration. | | | | SPECIMEN(S) REMOVED: None. | | | | ANESTHESIA: General endotracheal anesthesia with 1/4% | | Marcaine local. | | | | INDICATIONS: Maximo is a 8-year-old male with morbid | | obesity and a nonpalpable right testis. | | This was reportedly palpable at the | | age of [age] but has not been palpated since. There is some tissue palpable | | in the right hemiscrotum. He presents at this time for definitive | | management. | | | | FINDINGS: After anesthetic induction, bilateral testes | | were palpable within the scrotum. They were | | both approximately 1.5 cc | | and somewhat soft for age. Some additional tissue was present in the right | | hemiscrotum consistent with a mild hydrocele. It was unclear whether or not | | this was a communicating hydrocele. As a result, a scrotal approach was | | utilized. We could not verify that there was no communication of the | | processus. As a result the right inguinal exploration was also performed. | | No communication was noted. The testis was pexed in a right dartos pouch. | | | | PROCEDURE: After informed consent was obtained, the | | patient was properly identified, brought to | | the Operating Room, and | | | | | | | | | | given a general endotracheal anesthetic. The genital and abdominal regions | | were prepped and draped in the usual sterile fashion. | | | | After adequate anesthesia was assured, a right scrotal incision was made | | over the right testis with the knife, brought down through dartos fascia and | | the fascial tissues until the tunica vaginalis was incised and the testis | | delivered through the incision. The tunica vaginalis was mobilized and | | opened superiorly as far as possible as this approached the inguinal canal | | region. We could not verify that the tunica had in fact closed. Due to | | concern about communication, a right inguinal incision was made with the | | knife and carried down through the various extensive fat and subcutaneous | | tissues with electrocautery. Sharp and blunt dissection was performed to | | free the cord from the surrounding structures near the external ring. The | | external ring was identified and the external oblique was incised in the | | direction of its fibers. The cord was freed from the surrounding tissues. | | A cord lipoma was present but no communicating hydrocele was present. As a | | result, the cord was placed back in its normal anatomical position as was | | the nerve. The external oblique fascia was closed with a running 2-0 Vicryl | | suture. The fat and Saeid's fascial tissue layers were closed with two | | layers of 4-0 chromic. The skin was closed with a running 4-0 Vicryl | | subcuticular suture. The right testis was pexed into the right hemiscrotum | | using dartos pouch technique in a single 4-0 silk suture. The skin and | | scrotum were closed with a 4-0 Vicryl pursestring subcuticular suture. | | | | | | | | | | Krunal Garrison M.D. | | Resident, Urology | | | | Allan Napier M.D. | | Health Informatics Advisor, Urology | | SONA: basia | | | | A | | | + + documented in this encounter Visit Diagnoses Not on filedocumented in this encounter"
--- OUTSIDE RECORDS SUMMARY | ~2018-09-20 | XMS | Clinical Summary ---
Demographics + + + | Address | [address] | | | [place] [address] | + + + | Home Phone | | + + + | Preferred Language | Unknown | + + + | Marital Status | Single | + + + | Yarsanism Affiliation | [id number] | + + + | Race | Unknown | + + + | Ethnic Group | Unknown | + + + Author + + + | Author | [facility] | | | and [place] | + + + | Organization | [facility] | [...] Team Providers + +------+ + | Care Inpatient Pharmacist Name | Role | Phone | + +------+ + | No, Physician | PP | Unavailable | + +------+ + Allergies No Known Allergies Medications + + + +---------+------+------+-------+ | Medication | Sig | Dispensed | Refills | Star | End | Statu | | | | | | t | Date | s | | | | | | Date | | | + + + +---------+------+------+-------+ | naproxen | Take 500 mg by mouth | | 0 | | | Activ | | (NAPROSYN) 500 mg | 2 times daily (with | | | | | e | | tablet | breakfast & | | | | | | | | dinner). | | | | | | + + + +---------+------+------+-------+ | cyclobenzaprine | Take 10 mg by mouth | | 0 | | | Activ | | (FLEXERIL) 10 mg | 3 times daily as | | | | | e | | tablet | needed for Muscle | | | | | | | | spasms. | | | | | | + + + +---------+------+------+-------+ Active Problems Not on file Family History + + +------+ + | Medical History | Relation | Name | Comments | + + +------+ + | No known problems | Father | | | + + +------+ + | No known problems | Maternal | | | | | Grandfath | | | | | er | | | + + +------+ + | No known problems | Maternal | | | | | Grandmoth | | | | | er | | | + + +------+ + | Thyroid disease | Mother | | | + + +------+ + | No known problems | Paternal | | | | | Grandfath | | | | | er | | | + + +------+ + | No known problems | Paternal | | | | | [...] | | | | (Season Ended) | 9 | | | + + + + + Results Not on filefrom Last 3 Months Insurance +-------+--------+ +--------+-------+---------+------+ | Payer | Benefi | Subscriber | Effect | Phone | Address | Type | | | t Plan | ID | ramiro | | | | | | / | | Dates | | | | | | Group | | | | | | +-------+--------+ +--------+-------+---------+------+ | BCBS | BCBS | [id number] | 07/30/19 | | | PPO | | | OOS | 3 | 17-Pre | | | | | | PPO | | sent | | | | +-------+--------+ +--------+-------+---------+------+ + +--------+ +--------+ + + | Guarantor Name | Accoun | Relation to | Date | Phone | Billing Address | | | t Type | Patient | of | | | | | | | | | | + +--------+ +--------+ + + | Maximo Mays | Person | Self [birth year] | [address] | | | roshni/Fahad | | 1986 | [phone] | [place] [address] | | | meaghan | | | 3 (Home) | | + +--------+ +--------+ + + Advance Directives Patient has advance care planning documents on file. For more information, please contact:[facility] [place] [address]"
--- OUTSIDE RECORDS SUMMARY | ~2018-09-20 | XMS | Encounter Summary ---
Demographics + + + | Address | [address] | | | [place] [address] | + + + | Home Phone | | + + + | Preferred Language | Unknown | + + + | Marital Status | Single | + + + | Yarsanism Affiliation | Unknown | + + + | Race | White | + + + | Ethnic Group | Not or | + + + Author + + + | Author | [facility] | + + + | Organization | [facility] | + + + | Address | Unknown | + + + | Phone | Unavailable | + + + Support + + + + + | Name | Relationship | Address | Phone | + + + + + | Shauna Mays | ECON | [address] | | | | | [place] [address] | | + + + + + Care Team Providers + +------+ + | Care Baseboard Heating Installer Name | Role | Phone | + +------+ + PCP | Unavailable | + +------+ + Encounter Details +--------+ + + + + | Date | Type | Department | Care Team | Description | +--------+ + + + + | 07/18/ | Transcribed | Allergy Clinic at | Dictation, Other | Transcribed | | 1996 | | [facility] [address] | | | | | | [facility] | | | | | | Mailcode: [id number] | | | | | | [place] | | | | | | Building [place], | | | | | | [place] [address] | | | | | | [phone] | | | +--------+ + + + [...] as of this encounter Progress Notes Interface, Custodian Supervisor In - 07/02/2006 2:32 AM PST [address] [address] or July 18, 1996 MRS SHAUNA MAYS [address] [place] [address] [place] [address] RE:Maximo MAYS MR#:[id number] Dear Mrs. Mays: As we discussed by telephone, we carried out a 24-hour urine measurement of free cortisol to determine whether Maximo might have Winter's disease to explain his obesity and being somewhat on the short side. The 24-hour urine free cortisol result of 50 mcg was somewhat elevated for a 11-year-old boy, but in the normal range for someone who is adult weight, that is around 200 pounds. To be sure that Maximo does not have Jose's disease, I would therefore like to recommend one more test. This test involves measurement of the blood cortisol first thing in the morning after taking one pill, dexamethasone, 1 mg at bedtime. Exact instructions for the test are as follows: 1) Maximo may have anything to eat or drink up until midnight. 2) Take dexamethasone, 1 mg pill, at bedtime (a prescription for this is enclosed). 3) Blood cortisol level obtained fasting in the morning before 8:00 a.m. (Maximo may have water to drink but nothing else). I will send a copy of this letter to Dr. Che so that he can facilitate having the blood sample drawn in [place]. I will ask him to fax the results to me at [phone]. Once I see the results, I will again contact you by telephone. Sincerely, Maciel Baltazar M.D. Professor, Pediatrics Director, Pediatric Endocrinology SHL:janis cc: KAIT CHE MD [address] [place] [address] documented in this encounter Plan of Treatment Not on filedocumented as of this encounter Visit Diagnoses Not on filedocumented in this encounter"
--- OUTSIDE RECORDS SUMMARY | ~2018-09-20 | XMS | Encounter Summary ---
Demographics + + + | Address | [address] | | | [place] [address] | + + + | Home Phone | | + + + | Preferred Language | Unknown | + + + | Marital Status | Single | + + + | Evangelical Affiliation | Unknown | + + + | Race | White | + + + | Ethnic Group | Not or | + + + Author + + + | Author | [facility] | + + + | Organization | [facility] | + + + | Address | Unknown | + + + | Phone | Unavailable | + + + Support + + + + + | Name | Relationship | Address | Phone | + + + + + | Shauna Mays | ECON | [address] | | | | | [place] [address] | | + + + + + Care Team Providers + +------+ + | Care Building Rental Superintendent Name | Role | Phone | + +------+ + PCP | Unavailable | + +------+ + Encounter Details +--------+ + + + + | Date | Type | Department | Care Team | Description | +--------+ + + + + | 08/16/ | Office | UNKNOWN DEPARTMENT | Note, Outpatient | Progress Note | | 1993 | Visit-Trans | [address] [facility] | Clinic | | | | zhane | [facility] | | | | | | [place], [place] | | | | | | [address] | | | +--------+ + + + [...] documented as of this encounter Progress Notes Other, Faculty - 11/26/2007 10:16 AM PDT CLINIC DATE: UROLOGY CLINIC The patient is a 8-year-old white male with a history of slipped femoral epiphyses who has been treated by Dr. Arora. At that time of his examination, he was noted to have infantile genitalia and a question of gonadotropin deficiency and was sent for referral of evaluation of his genitalia as well as a history of intermittent nocturnal enuresis. The patient is 8, and has previously been noted to have undescended testes. He apparently was seen by a urologist in [place] who said his testes were down and that his genitalia were normal for age; however, because of his exogenous obesity, concealed his phallus somewhat. There is no history of headaches or visual disturbances. The family denies any history of day-time urinary incontinence. There is no incontinence of stool. The patient voids with a normal frequency. There is no urgency. He does have wet nights which seem to have responded to some home herbal remedies. PHYSICAL EXAMINATION: Demonstrates a male who weighs 61.7 kg. He has exogenous obesity. ABDOMEN: Demonstrates it to be obese. There is no palpable abdominal masses noted. GENITALIA: Demonstrate him to be Irineo Stage I. There is no evidence of the onset of puberty. The left testis is down in the scrotum measuring about 1-1/2 to 2 cubic centimeters in size. It is of normal consistency. I am unable to palpate a testis on the right side, in either the supine or squatting position. The phallus is concealed in prepubic fat pad and also has excessive foreskin even though he was circumcised, both of which contribute to his concealment. ASSESSMENT: 1. Exogenous obesity. 2. A nonpalpable right undescended testis. 3. Concealed penis. We discussed these issues with the family. We will proceed with the performance of a right inguinal exploration and probable orchidopexy in the near future. Allan Napier M.D. Pump Installation And Servicer, Urology SS:margie nterface, Hydrogenation Still Operator In - 08/30/2006 3:00 AM PDT CLINIC DATE: 08/16/93 PED[facility]ATRIC ENDOCRINE CLINIC Maximo is a [age] year two month old boy who is referred to Pediatric Endocrine Clinic for evaluation of possible hormonopathy. He was referred by Dr. Devan Arora secondary to the presence of slipped capital femoral epiphysis, obesity and decreased genital development. In summary, he is the product of a that was complicated by toxemia at seven months gestation. He was carried to 42 weeks gestation and delivered by vaginal delivery after Pitocin induction. Delivery was unremarkable. His weight was 8 pounds 10-1/2 ounces. There was no hypoglycemia in the period. He went home with his mother. At [age] years of age, he was seen by his orthopedist for apparent bowing of the legs. At [age] years of age, he was diagnosed with viral meningitis. He has also had a broken collar bone. Six weeks ago he underwent an operation for slipped capital femoral epiphyses. Otherwise, his past medical history is benign. Developmental history is pertinent for Maximo doing well in the fourth grade. He has had some attention problems in the past, but is currently doing well. On review of systems, he denies headache or change in his vision. He tolerates illnesses well with no increased history of gastrointestinal disorders. He denies polydypsia or polyuria. He also denies constipation or diarrhea. He denies cold intolerance, although he is somewhat intolerant of heat. Family history is pertinent for a mother who is 5'7-1/2" tall and a father who is 6'1" tall. Both Mom and Dad apparently underwent puberty at the normal time. Maximo has a younger sister and older brother, both of whom are healthy, but somewhat obese. Mom also has a recent history of a 150 pound weight loss secondary to gastric stapling. Dad is also somewhat overweight in that he is 260 pounds despite being 6'1" tall. PHYSICAL EXAM: Weight is 61.7 kg. which is above the 95th percentile. Height 133.7 cm. which is at the 25th percentile. Blood pressure 70/42. General: obese-appearing boy in no acute distress. HEENT: tympanic membranes normal bilaterally, extraocular movements intact, pupils equal, round and reactive to light and accommodation, fundi and discs normal bilaterally, twelve mandibular and twelve maxillary teeth in good condition. Neck: obese but with no palpable thyroid tissue. Chest: clear to auscultation. Heart: regular rate and rhythm without murmur. Abdomen: obese, but with no hepatosplenomegaly. Genitourinary: Irineo I male with most of his phallus buried in the suprapubic fat pad. Upon retraction of the fat pad, his phallus appears to be within normal limits. The left testis was easily palpable and 1.5 cc. in volume. The right testis was difficult to palpate. Some atrophic tissues were palpated which did not seem to clearly be a testis, although was approximately .25 to .5 cc. in volume. Extremities: without lesions. No short fourth or fifth metacarpals. Skin: warm and moist. LABORATORY: T3 167, T4 7.4, TSH 2.3, cholesterol 192, SMAC otherwise normal. ASSESSMENT: Maximo is a 10-1/2 year old boy who presents with a history of slipped capital femoral epiphyses, obesity, and possible decreased genital development. Although growth hormone deficiency and thyroid hormone deficiency are associated with slipped capital femoral epiphyses, his normal growth essentially rules out growth hormone deficiency while normal thyroid function tests rule out thyroid hormone deficiency. Maximo is in a high risk group for slipped capital femoral epiphyses in that he is a prepubescent obese male. I believe the cause of his orthopedic disorder is likely idiopathic. His obesity is most likely due to his family pattern and genetics. His genital development appears within normal limits although is somewhat hidden in the suprapubic fat pad. He is still at an age where I would not expect him to be in puberty. The apparent undescended right testis will be evaluated by Pediatric Urology. PLAN: 1. Encouragement. Emphasized that his pubertal development appears normal. 2. Recommend consultation with a pediatric cns for his obesity. Damion Sanders M.D. Fellow, Pediatric Endocrinology BAB:minoo D: [birth year] T: 08-17-93 documented in this encounter Plan of Treatment Not on filedocumented as of this encounter Visit Diagnoses Not on filedocumented in this encounter
--- OUTSIDE RECORDS SUMMARY | ~2018-09-20 | XMS | Encounter Summary ---
Demographics + + + | Address | [address] | | | [place] [address] | + + + | Home Phone | | + + + | Preferred Language | Unknown | + + + | Marital Status | Single | + + + | Sikh Affiliation | Unknown | + + + [...] | | | | | [place] [address] | | + + + + + Care Team Providers + +------+ + | Care Can Line Examiner Name | Role | Phone | + [...] Services | | | | Note-Transc | [facility] | | | | | jacky | [place], [place] | | | | | | [address] | | | +--------+ + + + [...]
--- OUTSIDE RECORDS SUMMARY | ~2018-09-20 | XMS | Encounter Summary ---
Demographics + + + | Address | [address] | | | [place] [address] | + + + | Home Phone | | + + + | Preferred Language | Unknown | + + + | Marital Status | Single | + + + | Druze Affiliation | Unknown | + + + [...] | | | | | [place] [address] | | + + + + + Care Team Providers + +------+ + | Care Environmental Health Sanitarian Name | Role | Phone | + +------+ + PCP | Unavailable | + +------+ + Encounter Details +--------+ + + + + | Date | Type | Department | Care Team | Description | +--------+ + + + + | 07/18/ | Transcribed | Allergy Clinic at | Dictation, Other | Transcribed | | 1996 | | [facility] [address] | | | | | | [facility] | | | | | | Mailcode: OP34 [address] | | | | | | [address] | | | | | | Building [place], | | | | | | [place] [address] | | | | | | [phone] | | | +--------+ + + + [...] as of this encounter Progress Notes Interface, Fried Cake Maker In - 07/02/2006 2:32 AM PST [address] [address] or July 18, 1996 MRS SHAUNA MAYS [address] [place] [address] [place] [address] RE:Maximo MAYS MR#:[id number] Dear Mrs. Mays: As we discussed by telephone, we carried out a 24-hour urine measurement of free cortisol to determine whether Maximo might have Amherst's disease to explain his obesity and being [...] facilitate having the blood sample drawn in [place]. I will ask him to fax the results to me at [phone]. Once I see the results, I will again contact you by telephone. Sincerely, Maciel Baltazar M.D. Professor, Pediatrics Director, Pediatric Endocrinology SHL:janis cc: KAIT CHE MD [address] [place] [address] documented in this encounter Plan of Treatment Not on filedocumented as of this encounter Visit Diagnoses Not on filedocumented in this encounter"
--- OUTSIDE RECORDS SUMMARY | ~2018-09-20 | XMS | Encounter Summary ---
Demographics + + + | Address | [address] | | | [place] [address] | + + + | Home Phone | | + + + | Preferred Language | Unknown | + + + | Marital Status | Single | + + + | Latter Day Affiliation | Unknown | + + + | Race | White | + + + | Ethnic Group | Not or | + + + Author + + + | Author | [facility] | + + + | Organization | [facility] | + + + | Address | Unknown | + + + | Phone | Unavailable | + + + Support + + + + + | Name | Relationship | Address | Phone | + + + + + | Shauna Mays | ECON | [address] | | | | | [place] [address] | | + + + + + Care Team Providers + +------+ + | Care Global Creative Chairman Name | Role | Phone | + [...] Shafer | | | | | | [email or web address] | | | | | | Mailcode: [id number] | | | | | | [facility] | | | | | | [place], [place] | | | | | | [address] | | | | | | [phone] | | | +--------+ + + + [...] as of this encounter Progress Notes Interface, Citrix Architect In - 06/08/2006 5:09 AM PST CLINIC [...] FSH of 1. 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 cortisol was 5. This was followed up with a 24-hour free cortisol which was somewhat increased for age at 50 mcg. I therefore carried out an overnight 1 mg dexamethasone suppression test with an a.m. fasting cortisol of 1.2 ug/dl, in the normal range and excluding Flanagan's syndrome. 2. Obesity, severe. 3. History of [...] SHL:sgr cc: KAIT PAGE MD [address], [address] [facility] [place] [address] documented in this encounter Plan of Treatment Not on filedocumented as of this encounter Visit Diagnoses Not on filedocumented in this encounter
--- OUTSIDE RECORDS SUMMARY | ~2018-09-20 | XMS | Encounter Summary ---
Demographics + + + | Address | [address] | | | [place] [address] | + + + | Home Phone [...] | | | | | [place] [address] | | + + + + + Care Team Providers + +------+ + | Care Paint Roller Covers Supervisor Name | Role | Phone | + +------+ + PCP | Unavailable | + +------+ + Encounter Details +--------+ + + + + | Date | Type | Department | Care Team | Description | +--------+ + + + + | 05/13/ | Results | Orthopaedics at | Kameron Asif MD | | | 1996 | Only | [facility] [address] | [address] | | | | | [facility] | [address] [place], | | | | | Mailcode: [id number] | [place] [address] | | | | | [facility] | | | | | | [place], [place] | | | | | | [address] | | | | | | [phone] | | | +--------+ + + + [...] + +--------+ + + + | X-RAY PELVIS 2 VIEWS | Routin | 05/13/1996 | | Results for this | | | e | 2:10 PM | | procedure are in the | | | | PST | | results section. | + +--------+ + + + documented in this encounter Results PELVIS 2 VIEWS (05/13/1996 2:10 PM PST) + + + + + + | Component | Value | Ref Range | Performed | Pathologist | | | | | At | Signature | + + + + + + | PELVIS 2 | Radiologist 1: | | | | | VIEWS | MARNI RICHARDSON, | | | | | | Prachi MAYS, | | | | | | MAXIMO | | | | | | | | | | | | | | | | | | | | | | | | [birth year] BILATERAL | | | | | | HIPS PERFORMED ON | | | | | | 05/13/96 AT 1410 | | | | | | HOURS DICTATED ON | | | | | | | | | | | | COMPARISON: There are | | | | | | no comparison studies | | | | | | available. FINDINGS: | | | | | | Slipped epiphyses have | | | | | | been fixed internally | | | | | | bilaterally.On the left, | | | | | | there is what appears | | | | | | to be an old broken | | | | | | screwtraversing the | | | | | | gross plate. An | | | | | | intact screw is seen | | | | | | beside it. Thereis | | | | | | white medial positioning | | | | | | of the capital femoral | | | | | | epiphysesbilaterally, | | | | | | moreso on the left. 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 END OF | | | | | | IMPRESSION: | | | | + + + + + + + + | Specimen | + + | | + + + +---------+ + + | Performing | Address | City/State/Zipcode | Phone Number | | Organization | | | | + +---------+ + + | [facility] DEPARTMENT OF | | | | | RADIOLOGY | | | | + +---------+ + + documented in this encounter Visit Diagnoses Not on filedocumented in this encounter"
--- OUTSIDE RECORDS SUMMARY | ~2018-09-20 | XMS | Encounter Summary ---
Demographics + + + | Address | [address] | | | [place] [address] | + + + | Home Phone | | + + + | Preferred Language | Unknown | + + + | Marital Status | Single | + + + | Confucianist Affiliation | Unknown | + + + [...] | | | | | [place] [address] | | + + + + + Care Team Providers + +------+ + | Care Child Development Director Name | Role | Phone | + [...] Shafer | | | | | | [address] | | | | | | Mailcode: [id number] | | | | | | [facility] | | | | | | [place], [place] | | | | | | [address] | | | | | | [phone] | | | +--------+ + + + [...] as of this encounter Progress Notes Interface, Hospital Mortician In - 07/26/2006 5:05 AM PDT CLINIC DATE: 09/11/95 [facility]IC [facility] DISCIPLINE: PEDIATRIC ENDOCRINOLOGY REPORT Maximo, age 10 years, 2 months, was referred by Dr. Devan Arora, from the [facility], for evaluation of excessive weight gain associated with small genital size and absent pubertal development. As regards Maximo's excessive weight gain, by the mother's report he has been obese since infancy, by her recollection from plotting on [facility] growth curves. From the growth points [...] and the family has been involved in [employer] treatments. 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 FAMILY HISTORY: Mr. Mays reportedly is 6"1-2" in height, and weighs around 265 pounds. Mrs. Mays is 5'7" in height; she underwent menarche [...] Endocrinology ANDER/nayely P cc: Devan Arora M.D. Insurance Account Manager, Orthopedics and Rehabilitation [facility] documented in this encounter Plan of Treatment Not on filedocumented as of this encounter Visit Diagnoses Not on filedocumented in this encounter
--- OUTSIDE RECORDS SUMMARY | ~2018-09-20 | XMS | Encounter Summary ---
Demographics + + + | Address | [address] | | | [place] [address] | + + + | Home Phone | | + + + | Preferred Language | Unknown | + + + | Marital Status | Single | + + + | Bahai Affiliation | Unknown | + + + | Race | White | + + + | Ethnic Group | Not or | + + + Author + + + | Author | [facility] | + + + | Organization | [facility] | + + + | Address | Unknown | + + + | Phone | Unavailable | + + + Support + + + + + | Name | Relationship | Address | Phone | + + + + + | Shauna Mays | ECON | [address] | | | | | [place] [address] | | + + + + + Care Team Providers + +------+ + | Care Wire Wrapper Machine Operator Name | Role | Phone | + +------+ + PCP | Unavailable | + +------+ + Encounter Details +--------+ + + + + | Date | Type | Department | Care Team | Description | +--------+ + + + + | 08/20/ | Transcribed | Allergy Clinic at | Dictation, Other | Transcribed | | 1996 | | [facility] [address] | | | | | | [facility] | | | | | | Mailcode: [address] | | | | | | [address] | | | | | | Building [place], | | | | | | [place] [address] | | | | | | [phone] | | | +--------+ + + + [...] as of this encounter Progress Notes Interface, Steam Hammer Operator In - 06/29/2006 3:09 AM PST [address] [address] or August 20, 1996 KAIT PAGE MD [address] [place] [address] RE:Maximo Mays MR#:[id number] Page: Thank [...] plan to see him again in the [facility] in six months. Again, thank you for your help in evaluating Maximo. Sincerely, Maciel Baltazar M.D. Professor, Pediatrics Director, Pediatric Endocrinology ANDER/melanie documented in this encounter Plan of Treatment Not on filedocumented as of this encounter Visit Diagnoses Not on filedocumented in this encounter"
--- OUTSIDE RECORDS SUMMARY | ~2018-09-20 | XMS | Encounter Summary ---
Demographics + + + | Address | [address] | | | [place] [address] | + + + | Home Phone [...] Author + + + | Author | [facility] | + + + | Organization | [facility] | + + + | Address | Unknown | + + + | Phone | Unavailable | + + + Support + + + + + | Name | Relationship | Address | Phone | + + + + + | Shauna Mays | ECON | [address] | | | | | [place] [address] | | + + + + + Care Team Providers + +------+ + | Care Wing Coverer Name | Role | Phone | + +------+ + PCP | Unavailable | + +------+ + Encounter Details +--------+ + + + + | Date | Type | Department | Care Team | Description | +--------+ + + + + | 02/13/ | Results | Registration [address] | | | | 1993 | Only | [address] | | | | | | [facility] Mailcode: | | | | | | RPB[address] [place], [place] | | | | | | [address] | | | | | | [phone] | | | +--------+ + + + [...] | | | | | | Re [id number] | | | | | | ATE [...] | + + + + + | [facility] | [address] | [place] [address] | | | PATHOLOGY | [address] [...] | + + + + + | [facility] | [address] | [place] [address] | | | PATHOLOGY | [address] [...] | + + + + + | [facility] | [address] | [place] [address] | | | PATHOLOGY | [address] | | | + + + + + documented in this encounter Visit Diagnoses Not on filedocumented in this encounter"
--- OUTSIDE RECORDS SUMMARY | ~2018-09-20 | XMS | Encounter Summary ---
Demographics + + + | Address | [address] | | | [place] [address] | + + + | Home Phone | | + + + | Preferred Language | Unknown | + + + | Marital Status | Single | + + + | Caodaism Affiliation | Unknown | + + + | Race | White | + + + | Ethnic Group | Not or | + + + Author + + + | Author | [facility] | + + + | Organization | [facility] | + + + | Address | Unknown | + + + | Phone | Unavailable | + + + Support + + + + + | Name | Relationship | Address | Phone | + + + + + | Shauna Mays | ECON | [address] | | | | | [place] [address] | | + + + + + Care Team Providers + +------+ + | Care Assembler Radio And Electrical Name | Role | Phone | + +------+ + PCP | Unavailable | + +------+ + Encounter Details +--------+ + + + + | Date | Type | Department | Care Team | Description | +--------+ + + + + | 03/17/ | Procedure - | UNKNOWN DEPARTMENT | Record, Operation | Operative Report | | 1993 | | [address] [facility] | | | | | Transcribed | [facility] | | | | | | [place], [place] | | | | | | [address] | | | +--------+ + + + [...] | + + | 03/17/1994 12:00 AM [facility] | | [facility] | | [address] [place], [place] [address] | | | | [facility] [facility] | | | | | | OPERATION RECORD SHORT STAY | | | | Med Rec No.: [id number] Date: 03/17/94 | | | | Name: Maximo Mays | | | | | | ATTENDING SURGEON: Allan Napier M.D. | | Butcher, Urology | | | | CARD SELLER(S): Krunal Garrison M.D. | | Resident, Urology [...] | | Allan Napier M.D. | | Butcher, Urology | | SONA: basia | | | | A | | | + + documented in this encounter Visit Diagnoses Not on filedocumented in this encounter"
--- OUTSIDE RECORDS SUMMARY | ~2018-09-20 | XMS | Encounter Summary ---
Demographics + + + | Address | [address] | | | [place] [address] | + + + | Home Phone | | + + + | Preferred Language | Unknown | + + + | Marital Status | Single | + + + | Mu-Ism Affiliation | Unknown | + + + [...] | | | | | [place] [address] | | + + + + + Care Team Providers + +------+ + | Care Marketing Technology Coordinator Name | Role | Phone | + +------+ + PCP | Unavailable | + +------+ + Encounter Details +--------+ + + + + | Date | Type | Department | Care Team | Description | +--------+ + + + + | 08/22/ | Hospital | Registration [address] | Corinna Mendoza, | | | 2006 | Activity | [address] | ACN [address] [facility] | | | | | [facility] Mailcode: | [place], [place] | | | | | [address] [place], [place] | [address] | | | | | [address] | [phone] | | | | | [phone] | | | +--------+ + + + [...] | + + + + + | [facility] DEPARTMENT OF | [address] | [place] [address] | | | PATHOLOGY | [address] | | | + + + + + | [facility] DEPARTMENT OF | [address] | [place] [address] | | | PATHOLOGY | [address] [...] + + | [facility] DEPARTMENT OF | [address] | [place], [place] [address] | | | PATHOLOGY | [address] | | | + + + + + | [facility] DEPARTMENT OF | [address] | [place] [address] | | | PATHOLOGY | [address] [...] (H)Comment: | 60 - 99 mg/dL | [facility] | | | PLASMA | Reference [...] | + + + + + | [facility] DEPARTMENT OF | [facility] | [place] [address] | | | PATHOLOGY | [address] | | | + + + + + | [facility] | [facility] | [place] [address] | | | PATHOLOGY | [address] [...] DEPARTMENT OF | [address] | [place], [place] [address] | | | PATHOLOGY | [address] | | | + + + + + | [facility] DEPARTMENT OF | [address] [facility] | [place] [address] | | | PATHOLOGY | [address] [...] DEPARTMENT OF | [address] | [place] [address] | | | PATHOLOGY | [address] | | | + + + + + | [facility] DEPARTMENT | [address] | [place] [address] | | | PATHOLOGY | [address] [...] | + + + + + | [facility] | [address] | [place] [address] | | | PATHOLOGY | [address] | | | + + + + + | [facility] | [address] [place] [address] [place] | [place] [address] | | | PATHOLOGY | [address] [...] DEPARTMENT OF | [address] | [place] [address] | | | PATHOLOGY | [address] | | | + + + + + | [facility] DEPARTMENT OF | [address] | [place] [address] | | | PATHOLOGY | [address] [...] DEPARTMENT OF | [address] | [place] [address] | | | PATHOLOGY | [address] | | | + + + + + | [facility] DEPARTMENT OF | [address] | [place] [address] | | | PATHOLOGY | [address] [...] | + + + + + | [facility] DEPARTMENT OF | [address] | [place] [address] | | | PATHOLOGY | [address] | | | + + + + + | [facility] | [facility] | [place] [address] | | | PATHOLOGY | [address] [...] | + + + + + | [facility] | [address] [facility] | [place] [address] | | | PATHOLOGY | [address] | | | + + + + + | [facility] | [address] [facility] | [place] [address] | | | PATHOLOGY | [address] [...] | + + + + + | [facility] DEPARTMENT OF | [address] | [place] [address] | | | PATHOLOGY | [address] | | | + + + + + | [facility] DEPARTMENT OF | [address] | [place] [address] | | | PATHOLOGY | [address] [...] | + + + + + | [facility] | [facility] | [place] [address] | | | PATHOLOGY | [address] | | | + + + + + | [facility] | [facility] | [place] [address] | | | PATHOLOGY | [address] | | | + + + + + documented in this encounter Visit Diagnoses Not on filedocumented in this encounter"
--- OUTSIDE RECORDS SUMMARY | ~2018-09-20 | XMS | Encounter Summary ---
Demographics + + + | Address | [address] | | | [place] [address] | + + + | Home Phone | | + + + | Preferred Language | Unknown | + + + | Marital Status | Single | + + + | Restorationism Affiliation | Unknown | + + + | Race | White | + + + | Ethnic Group | Not or | + + + Author + + + | Author | [facility] | + + + | Organization | [facility] | + + + | Address | Unknown | + + + | Phone | Unavailable | + + + Support + + + + + | Name | Relationship | Address | Phone | + + + + + | Shauna Mays | ECON | [address] | | | | | [place] [address] | | + + + + + Care Team Providers + +------+ + | Care .Net Programmer Name | Role | Phone | + [...] [address] | | | | | | [address] | | | | | | Mailcode: [id number] | | | | | | [facility] | | | | | | [place], [place] | | | | | | [address] | | | | | | [phone] | | | +--------+ + + + [...] as of this encounter Progress Notes Interface, It Technical Support Specialist In - 07/06/2006 6:47 AM PST CLINIC [...] in about six months' time in the [facility] with repeat x-rays. Devan Arora M.D. Prizer Hand, Orthopedics and Rehabilitation CHIRAG/christianne A cc: [facility]'s chart. [facility]'s scheduling desk. nterface, It Technical Support Specialist In - 07/06/2006 6:47 AM [facility] CLINIC DATE: 05/13/96 [facility]IC [facility] [...] 3. 24-hour urine free cortisol to exclude Ashton syndrome. I will ask the help of Dr. Mitchell Page, in [place], in obtaining the 24-hour urine and having a laboratory perform the free cortisol measurement. RECALL: I would like to see Maximo again in six months. 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 Maciel Baltazar M.D. Professor, Pediatrics Director, Pediatric Endocrinology ANDER/ray A cc: MITCHELL APGE MD [address] [place] [address] documented in this encounter Plan of Treatment Not on filedocumented as of this encounter Visit Diagnoses Not on filedocumented in this encounter"
--- OUTSIDE RECORDS SUMMARY | ~2018-09-20 | XMS | Clinical Summary ---
Demographics + + + | Address | [address] | | | [place] [address] | + + + | Home Phone | | + + + | Preferred Language | Unknown | + + + | Marital Status | Single | + + + | Baptist Affiliation | Unknown | + + + [...] | | | | | [place] [address] | | + + + + + Care Team Providers + +------+ + | Care Manager Motor Name | Role | Phone | + +------+ + PP | Unavailable | + +------+ + Source Comments YANG is fully live on both [facility] Ambulatory and [facility] InPatient.[facility] Allergies Not on File Medications Not on [...]
--- OUTSIDE RECORDS SUMMARY | ~2018-09-20 | XMS | Encounter Summary ---
Demographics + + + | Address | [address] | | | [place] [address] | + + + | Home Phone | | + + + | Preferred Language | Unknown | + + + | Marital Status | Single | + + + | Anabaptist Affiliation | Unknown | + + + [...] | | | | | [place] [address] | | + + + + + Care Team Providers + +------+ + | Care Vendor Specialist Name | Role | Phone | [...] [address] | | | | | [facility] | [address] [place], | | | | | Mailcode: [id number] | [place] [address] | | | | | [facility] | | | | | | [place], [place] | | | | | | [address] | | | | | | [phone] | | | +--------+ + + + [...] | | + +---------+ + + | [facility] DEPARTMENT OF | | | | | RADIOLOGY | | | | + +---------+ + + documented in this encounter Visit Diagnoses Not on filedocumented in this encounter"
--- OUTSIDE RECORDS SUMMARY | ~2018-09-20 | XMS | Encounter Summary ---
Demographics + + + | Address | [address] | | | [place] [address] | + + + | Home Phone [...] | | | | | [place] [address] | | + + + + + Care Team Providers + +------+ + | Care Pharmacy Technician Assistant Name | Role | Phone | + [...] | | | | | | [facility] Mailcode: | | | | | | [address] [place], [place] | | | | | | [address] | | | | | | [phone] | | | +--------+ + + + [...] | + + + + + | [facility] | [address] | [place] [address] | | | PATHOLOGY | [address] [...] | + + + + + | [facility] | [address] | [place] [address] | | | PATHOLOGY | [address] [...] | + + + + + | [facility] | [address] | [place] [address] | | | PATHOLOGY | [address] [...] | + + + + + | [facility] | [address] | [place] [address] | | | PATHOLOGY | [address] [...] | + + + + + | [facility] | [address] | [place] [address] | | | PATHOLOGY | [address] [...] | + + + + + | [facility] | [address] | [place] [address] | | | PATHOLOGY | [address] | | | + + + + + documented in this encounter Visit Diagnoses Not on filedocumented in this encounter"
--- OUTSIDE RECORDS SUMMARY | ~2018-09-20 | XMS | Encounter Summary ---
Demographics + + + | Address | [address] | | | [place] [address] | + + + | Home Phone [...] + + + | Author | [facility] | + + + | Organization | [facility] | + + + | Address | Unknown | + + + | Phone | Unavailable | + + + Support + + + + + | Name | Relationship | Address | Phone | + + + + + | Shauna Mays | ECON | [address] | | | | | [place] [address] | | + + + + + Care Team Providers + +------+ + | Care Group Home Counselor Name | Role | Phone | + +------+ + PCP | Unavailable | + +------+ + Encounter Details +--------+ + + + + | Date | Type | Department | Care Team | Description | +--------+ + + + + | 08/16/ | Office | UNKNOWN DEPARTMENT | Note, Outpatient | Progress Note | | 1993 | Visit-Trans | [address] | Clinic | | | | zhane | [facility] | | | | | | [place], [place] | | | | | | [address] | | | +--------+ + + + [...] apparently was seen by a urologist in [place] who said his testes were down and [...] in the near future. Allan Napier M.D. Restaurant Operations Manager, Urology SS:margie nterface, Business Technology Teacher In - 08/30/2006 3:00 AM PDT CLINIC [...] appears normal. 2. Recommend consultation with a neonatal pediatric nurse for his obesity. Damion Sanders M.D. Fellow, Pediatric Endocrinology BAB:minoo D: 08-16-93 T: 08-17-93 documented in this encounter Plan of Treatment Not on filedocumented as of this encounter Visit Diagnoses Not on filedocumented in this encounter
--- OUTSIDE RECORDS SUMMARY | ~2018-09-20 | XMS | Encounter Summary ---
Demographics + + + | Address | [address] | | | [place] [address] | + + + | Home Phone | | + + + | Preferred Language | Unknown | + + + | Marital Status | Single | + + + | Gnosticist Affiliation | Unknown | + + + | Race | White | + + + | Ethnic Group | Not or | + + + Author + + + | Author | [facility] | + + + | Organization | [facility] | + + + | Address | Unknown | + + + | Phone | Unavailable | + + + Support + + + + + | Name | Relationship | Address | Phone | + + + + + | Shauna Mays | ECON | [address] | | | | | [place] [address] | | + + + + + Care Team Providers + +------+ + | Care Nurse Staff Name | Role | Phone | + +------+ + PCP | Unavailable | + +------+ + Encounter Details +--------+ + + + + | Date | Type | Department | Care Team | Description | +--------+ + + + + | 05/13/ | Results | Registration [id number] | | | | 1996 | Only | Benjy Shafer | | | | | | [facility] Mailcode: | | | | | | [address] [place], [place] | | | | | | [address] | | | | | | [phone] | | | +--------+ + + + [...] | + +--------+ + + + | URINE CHEMISTRY | Routin | 06/25/1996 | | Results for this | | TESTS | e | 11:16 AM | | procedure are in the | | | | PST | | results section. | + +--------+ + + + | IMMUNOLOGY TESTS 1 | Routin | 05/13/1996 | | Results for this | | | e | 4:40 PM | | procedure are in the | | | | PST | | results section. | + +--------+ + + + | URINALYSIS TESTS | Routin | 05/13/1996 | | Results for this | | | e | 4:29 PM | | procedure are in the | | | | PST | | results section. | + +--------+ + + + | CHEMISTRY TESTS 4 | Routin | 05/13/1996 | | Results for this | | | e | 3:30 PM | | procedure are in the | | | | PST | | results section. | + +--------+ + + + documented in this encounter Results URINE CHEMISTRY TESTS (06/25/1996 11:16 AM PST) + + + + + + | Component | Value | Ref Range | Performed | Pathologist | | | | | At | Signature | + + + + + + | CORTISOL, | 50. | MCG/COL TIME | | | | FREE URINE | | | | | + + + + + + + + | Specimen | + + | | + + + + + + + | Performing | Address | City/State/Zipcode | Phone Number | | Organization | | | | + + + + + | [facility] | [address] | [place] [address] | | | PATHOLOGY | [address] | | | + + + + + IMMUNOLOGY TESTS 1 (05/13/1996 4:40 PM PST) + + + + + + | Component | Value | Ref Range | Performed | Pathologist | | | | | At | Signature | + + + + + + | PARATHYROID | 32. | pg/mL | | | | . INTACT | | | | | + + + + + + | CALCIUM, | 8.8 | mg/dL | | | | SERUM | | | | | + + + + + + + + | Specimen | + + | | + + + + + + + | Performing | Address | City/State/Zipcode | Phone Number | | Organization | | | | + + + + + | [facility] | [address] | [place] [address] | | | PATHOLOGY | [address] | | | + + + + + URINALYSIS TESTS (05/13/1996 4:29 PM PST) + + + + + + | Component | Value | Ref Range | Performed | Pathologist | | | | | At | Signature | + + + + + + | COLOR(UR) | YELLOW | | | | + + + + + + | APPEARANCE | SLIGHTLY CLOUDY | | | | + + + + + + | GLUCOSE(UR) | NEG | mg/dL | | | + + + + + + | BILIRUBIN | NEG | mg/dL | | | + + + + + + | KETONES | NEG | mg/dL | | | + + + + + + | SPECIFIC | 1.025 | mg/dL | | | | GRAVITY | | | | | + + + + + + | BLOOD | NEG | mg/dL | | | + + + + + + | PH(UR) | 6.5 | mg/dL | | | + + + + + + | PROTEIN(LAB | NEG | mg/dL | | | | ) | | | | | + + + + + + | UROBILINOGE | 1. | ARTEM UNITS | | | | N | | | | | + + + + + + | NITRITES | NEG | ARTEM UNITS | | | + + + + + + | LEUKOCYTE | NEG | ARTEM UNITS | | | | ESTERASE | | | | | + + + + + + | URINE | MICROSCOPIC NOT | ARTEM UNITS | | | | COMMENT1 | INDICATED | | | | + + + + + + + + | Specimen | + + | | + + + + + + + | Performing | Address | City/State/Zipcode | Phone Number | | Organization | | | | + + + + + | [facility] | [address] | [place] [address] | | | PATHOLOGY | [address] | | | + + + + + CHEMISTRY TESTS 4 (05/13/1996 3:30 PM PST) + + + + + + | Component | Value | Ref Range | Performed | Pathologist | | | | | At | Signature | + + + + + + | CALCIUM, | 9.8 | mg/dL | | | | PLASMA | | | | | | (LAB) | | | | | + + + + + + + + | Specimen | + + | | + + + + + + + | Performing | Address | City/State/Zipcode | Phone Number | | Organization | | | | + + + + + | [facility] | [address] | [place] [address] | | | PATHOLOGY | [address] | | | + + + + + documented in this encounter Visit Diagnoses Not on filedocumented in this encounter"
--- OUTSIDE RECORDS SUMMARY | ~2018-09-20 | XMS | Encounter Summary ---
Demographics + + + | Address | [address] | | | [place] [address] | + + + | Home Phone [...] + + + | Author | [facility] | + + + | Organization | [facility] | + + + | Address | Unknown | + + + | Phone | Unavailable | + + + Support + + + + + | Name | Relationship | Address | Phone | + + + + + | Shauna Mays | ECON | [address] | | | | | [place] [address] | | + + + + + Care Team Providers + +------+ + | Care Property Handler Name | Role | Phone | + +------+ + PCP | Unavailable | + +------+ + Encounter Details +--------+ + + + + | Date | Type | Department | Care Team | Description | +--------+ + + + + | 05/13/ | Results | Registration [id number] | | | | 1996 | Only | Benjy Shafer | | | | | | [facility] Mailcode: | | | | | | [address] [place], [place] | | | | | | [address] | | | | | | [phone] | | | +--------+ + + + [...] | + + + + + | [facility] | [address] | [place] [address] | | | PATHOLOGY | [address] [...] | + + + + + | [facility] | [address] | [place] [address] | | | PATHOLOGY | [address] [...] | + + + + + | [facility] | [address] | [place] [address] | | | PATHOLOGY | [address] [...] | + + + + + | [facility] | [address] | [place] [address] | | | PATHOLOGY | [address] | | | + + + + + documented in this encounter Visit Diagnoses Not on filedocumented in this encounter"
--- OUTSIDE RECORDS SUMMARY | ~2018-09-20 | XMS | Clinical Summary ---
Demographics + + + | Address | [address] | | | [place] [address] | + + + | Home Phone | | + + + | Preferred Language | Unknown | + + + | Marital Status | Single | + + + | Scientologist Affiliation | Unknown | + + + | Race | Unknown | + + + | Ethnic Group | Unknown | + + + Author + + + | Author | [facility] | + + + | Organization | [facility] | + + + | Address | Unknown | + + + | Phone | Unavailable | + + + Support + + +---------+ + | Name | Relationship | Address | Phone | + + +---------+ + | Chloé Mays | ECON | Unknown | | + + +---------+ + Care Team Providers + +------+ + | Care Cold Header Name | Role | Phone | + [...]
--- OUTSIDE RECORDS SUMMARY | ~2018-09-20 | XMS | Clinical Summary ---
Demographics + + + | Address | [address] | | | [place] [address] | + + + | Home Phone | | + + + | Preferred Language | Unknown | + + + | Marital Status | Single | + + + | Temple Affiliation | 1013 | + + + | Race | Unknown | + + + | Ethnic Group | Unknown | + + + Author + + + | Author | [facility] | | | and [facility] | + + + | Organization | [facility] | | | and [facility] [...] Team Providers + +------+ + | Care Line Fixer Name | Role | Phone | + [...] +-------+--------+ +--------+-------+---------+------+ | BCBS | BCBS | [id number] | 07/30/19 | | | PPO | [...] | Self | [birth year] | [address] | | | roshni/Fahad | | 1986 | [phone] | [place] [address] | | | meaghan | | | 3 (Home) | | + +--------+ +--------+ + + Advance Directives Patient has advance care planning documents on file. For more information, please contact:[facility] [place] [address]"
[2018-09-20] MEDS ORDERED: IBUPROFEN800 MG PO (11:37)
[2018-09-20] MEDS ORDERED: PAIN RELIEVER500 M1 PO (11:37)
[2018-09-20] MEDS ORDERED: NORCO 5-325 TA1 EACH PO (11:50)
== END 2018-09-20 11:55 | disposition home or self-care (01) ==
LOC: ED 11:25
DX: G89.18 Other acute postprocedural pain (principal); M79.645 Pain in left finger(s); F17.200 Nicotine dependence, unspecified, uncomplicated; Z88.5 Allergy status to narcotic agent; Z88.6 Allergy status to analgesic agent; Z88.8 Allergy status to other drugs, medicaments and biological substances
CPT/HCPCS: 99282

== ENCOUNTER 2022-03-30 21:30 | Emergency (ER) | payer OTHER ==
[~2022-03-30] VITALS: Ht 177.8 cm; Wt 125.0 kg
[~2022-03-30 21:30] MED LIST: IBUPROFEN800 MG PO; NORCO 5-325 TA1 EACH PO; PAIN RELIEVER500 M1 PO
--- OUTSIDE RECORDS SUMMARY | 2022-03-30 21:32 | XMS ---
PreManage Notification: WALE ROMERO Security Binding Nicker Events No recent Security Events currently on file CRITERIA MET - [facility] PROVID[facility] KEEGAN MOROCHO Physician Sales Administrator Current PHONE: [phone] Elijah has no Care Guidelines for this patient. ECarlos VISIT COUNT (12 MO.) 1 HELENE Schumacher TOTAL 1 NOTE: Visits indicate total known visits. ED/UCC VISIT TRACKING (12 MO.) 03/30/2022 21:30 HELENE Sahni [place] TYPE: Emergency COMPLAINT: - RIB PAIN/ INJ INPATIENT VISIT TRACKING (12 MO.) No inpatient visits to display in this time frame [email or web address]
[2022-03-30] MEDS ORDERED: CYCLOBENZAPRINE10 MG PO (22:03)
[2022-03-31] MEDS ORDERED: HYDROCODON-ACE1 EA10 PO (00:01)
== END 2022-03-31 00:20 | disposition home or self-care (01) ==
LOC: ED 21:30
DX: S20.212A Contusion of left front wall of thorax, initial encounter (principal); S20.222A Contusion of left back wall of thorax, initial encounter; F17.200 Nicotine dependence, unspecified, uncomplicated; Z88.8 Allergy status to other drugs, medicaments and biological substances; Z88.5 Allergy status to narcotic agent; W01.0XXA Fall on same level from slipping, tripping and stumbling without subsequent striking against object, initial encounter
CPT/HCPCS: 36415; 71260; 74177; 80053; 81003; 83690; 85025; 99284-25; A9270; Q9967

== ENCOUNTER 2024-05-26 06:45 | Day surgery (SDC) | payer OTHER ==
[2024-05-13 14:00] VITALS: BP 121/74
[~2024-05-26] VITALS: Ht 177.8 cm; Wt 135.9 kg
[~2024-05-26 06:45] MED LIST changes: +CEFAZOLIN SODIUM 3 GM/30 ML SYR ONE; +CYCLOBENZAPRINE10 MG PO; +HYDROCODON-ACE1 EA10 PO; +LACTATED RINGER'S 1,000 ML IV SCH
[2024-05-26] MEDS ORDERED: Ropivacaine HCl 20 MG/10 ML AMP ONE (06:47)
[2024-05-26] MEDS ORDERED: ROPIVACAINE IN 0.9% SOD CHL/PF 545 ML ELS.PMP.HR IRRIGATION SCH (07:00)
[2024-05-26] MEDS ORDERED: INTRA-ARTICULAR ANALGESIC INJECTION XX SCH (07:00)
[2024-05-26] MEDS ORDERED: LIDOCAINE HCL 1% 5 ML SDV INJ ONE (07:00)
[2024-05-26] MEDS ORDERED: OXYCODONE HCL 5 MG TAB PO SCH (07:00)
[2024-05-26] MEDS ORDERED: IBLOOD GLUCOSE TEST STRIP 1 EA TEST VI PRN ×2 (07:00→10:45)
[2024-05-26] MEDS ORDERED: GABAPENTIN 600 MG TAB PO SCH (07:00)
[2024-05-26] MEDS ORDERED: PANTOPRAZOLE SODIUM 40 MG TABEC PO SCH (07:00)
[2024-05-26] MEDS ORDERED: CEFAZOLIN SODIUM 3 GM/30 ML SYR IV SCH ×2 (07:00→15:00)
[2024-05-26] MEDS ORDERED: ondansetron HCL 4 MG TAB PO SCH (07:00)
[2024-05-26] MEDS ORDERED: TRANEXAMIC ACID IN NACL,ISO-OS 1,000 MG/100 ML PIGGYBACK IV SCH ×2 (07:00→12:00)
[2024-05-26] MEDS ORDERED: HYDROmorphone HCL 2 MG TAB PO ONE (07:15)
[2024-05-26 07:16] VITALS: BP 116/69
[2024-05-26] MEDS ORDERED: DEXAMETHASONE SOD PHOS 4 MG/ML VIAL ONE (07:21)
[2024-05-26] MEDS ORDERED: dexmedeTOMIDine HCl 200 MCG/2 ML VIAL ONE (07:21)
[2024-05-26] MEDS ORDERED: LIDOCAINE HCL 2% 5 ML SDV ONE (07:21)
[2024-05-26] MEDS ORDERED: MIDAZOLAM HCL 2 MG/2 ML VIAL ONE ×2 (07:21)
[2024-05-26] MEDS ORDERED: SODIUM CHLORIDE 0.9% 40 ML IV ONE (07:21)
[2024-05-26] MEDS ORDERED: Ropivacaine HCl 0.5% 30 ML VIAL ONE (07:21)
[2024-05-26] MEDS ORDERED: fentaNYL citrate 100 MCG/2 ML VIAL ONE ×3 (07:22→11:03)
[2024-05-26] MEDS ORDERED: propofoL 200 MG/20 ML VIAL ONE (08:10)
[2024-05-26] MEDS ORDERED: KETOROLAC TROMETHAMINE 30 MG/ML VIAL IV PRN (09:00)
[2024-05-26] MEDS ORDERED: ASPIRIN 325 MG TAB PO SCH (09:00)
[2024-05-26] MEDS ORDERED: OXYCODONE HCL 5 MG TAB PO PRN (09:00)
[2024-05-26] MEDS ORDERED: ePHEDrine sulfate 50 MG/ML AMP ONE (09:35)
[2024-05-26] MEDS ORDERED: ACETAMINOPHEN 1,000 MG/100 ML VIAL ONE (09:46)
[2024-05-26] MEDS ORDERED: LACTATED RINGER'S 1,000 ML IV ONE (10:01)
[2024-05-26] MEDS ORDERED: fentaNYL citrate 50 MCG/ML SDV IV PRN (10:45)
[2024-05-26] MEDS ORDERED: MIDAZOLAM HCL 2 MG/2 ML VIAL IV PRN (10:45)
[2024-05-26] MEDS ORDERED: NALOXONE HCL 0.4 MG SYR IV PRN (10:45)
[2024-05-26] MEDS ORDERED: ondansetron HCL 4 MG/2 ML VIAL IV PRN (10:45)
[2024-05-26] MEDS ORDERED: DICLOFENAC SODI75 MG PO (10:59)
[2024-05-26] MEDS ORDERED: CEFUROXIME250 MG PO (10:59)
[2024-05-26] MEDS ORDERED: ASPIRIN325 MG PO (10:59)
[2024-05-26] MEDS ORDERED: OXYCODONE HCL5 MG PO (10:59)
[2024-05-26] MEDS ORDERED: SENNA LAX8.6 MG PO (11:00)
[2024-05-26] MEDS ORDERED: GABAPENTIN300 MG PO (11:00)
[2024-05-26] MEDS ORDERED: SODIUM CHLORIDE 0.9% 20 ML IV ONE (11:04)
[2024-05-26] MEDS ORDERED: XARELTO10 MG PO (11:39)
[2024-05-26] MEDS ORDERED: HYDROMORPHONE HC2 MG PO (11:39)
[2024-05-26] MEDS ORDERED: HYDROmorphone HCL 2 MG TAB PO PRN (11:45)
--- NOTE | 2024-05-26 12:05 | NUR ---
PT ARRIVES TO DS DEPT FROM PACU VIA STRETCHER. PT IS A&O AND STATES PAIN IS 5/10 ON RT KNEE CAP WITH RADIATION TO LATERAL ASPECT OF KNEE. PT REPORTS NO NAUSEA AT THIS TIME. CMS INTACT, PT REPORTS NO N/T AND ABLE TO MOVE EXTREMITIES WITHOUT DIFFICULTIES. TXA FINISHES INFUSING. LUNCH ORDER PLACED. PT TOLERATING PUTTING AND CRACKERS WITHOUT DIFFICULTY. CALL LIGHT WITHIN REACH, PT REPORTS NO FURTHER NEEDS OR QUESTIONS AT THIS TIME.
[2024-05-26 12:10] VITALS: BP 121/73
--- NOTE | 2024-05-26 12:15 | NUR ---
05/26/24 1215 Grace Eduardo 1115 PT ARRIVED IN PACU WIDE AWAKE AND C/O R KNEE PAIN 9/10. ON QUE SET AT 8ML/HR FROM SURGERY. 1120 R KNEE XRAY DONE. 1125 CRYO CUFF PLACED. 1130 SIPPING ON WATER. 1147 PAIN DOWN TO 7/10. DILAUDID 4MG PO GIVEN. 1200 PAIN DOWN TO 6/10. 1205 TO DS. REPORT GIVEN TO RN.
[2024-05-26 13:10] VITALS: BP 142/64
--- NOTE | 2024-05-26 13:10 | NUR ---
IN PT ROOM FOR VS AND ASSESSMENT. PT REPORTS PAIN REMAINS AT 5/10 AND TOLERABLE. PT TOLERATED 100% OF LUNCH, NO REPORTS OF NAUSEA. DRESSING C/D/I. PT REPORTS NO N/T AND CONTINUES TO BE ABLE TO FULLY MOVE BLE. CALL LIGHT WITHIN REACH, PT PHONE AT BEDSIDE. PT REPORTS NO FURTHER NEEDS OR QUESTIONS AT THIS TIME.
[2024-05-26 14:10] VITALS: BP 129/75
--- NOTE | 2024-05-26 14:13 | NUR ---
IN PT ROOM FOR VS AND ASSESSMENT. NO ACUTE CHANGES FROM PREVIOUS ASSESSMENT. PT REPORTS PAIN HAS DECREASED TO 3/10 AT THIS TIME. PT STATES MINIMAL AMOUNT OF NUMBNESS BELOW SURGICAL KNEE. PT ABLE TO WIGGLE TOES WITHOUT DIFFICULTIES AND SENSATION INTACT. DRESSING C/D/I. PT REPORTS NO NEEDS AT THIS TIME. CALL LIGHT WITHIN REACH. PT SITTING UP IN BED WATCHING TV AT THIS TIME.
[2024-05-26] MEDS ORDERED: GABAPENTIN 300 MG CAP PO SCH (15:00)
--- NOTE | 2024-05-26 15:16 | NUR ---
PT PASSES PHYSICAL THERAPY.
--- NOTE | 2024-05-26 15:30 | NUR ---
PT URINE VOIDS IN URINAL 450 ML OF CLEAR/YELLOW URINE. PT STATES PAIN REMAINS TOLERABLE AT 3/10 AND NO NEED FOR PRN PAIN MED AT THIS TIME. PT LAYING IN BED W/SON'S MOTHER AT BEDSIDE. CALL LIGHT WITHIN REACH, PT STATES NO FURTHER QUESTIONS OR NEEDS AT THIS TIME.
[2024-05-26 15:40] VITALS: BP 128/72
--- NOTE | 2024-05-26 15:57 | NUR ---
ABILIO TANNER CALLED AND UPDATED ON PT MEETING ALL REQUIREMENTS. RECEIVED VO FOR TITRATION OF ONQ PUMP TO 6. PT GETTING DRESSED AT THIS TIME, CALL LIGHT WITHIN REACH.
--- NOTE | 2024-05-26 16:00 | NUR ---
IN PT ROOM FOR CLINICAL OB AND DC EDUCATION. PT STATES VERBAL UNDERSTANDING TO DC EDUCATION AT THIS TIME. PT OFF OF UNIT VIA WC TO PASSENGER SIDE OF VEHICLE. ALL BELONGINGS IN PT POSSESSION AT THIS TIME. PT STATES NO FURTHER NEEDS OR QUESTIONS AT THIS TIME.
[2024-05-26] MEDS ORDERED: SENNOSIDES 1 TAB PO SCH (21:00)
[2024-05-26] MEDS ORDERED: TAMSULOSIN HCL 0.4 MG CAP PO SCH (21:00)
[2024-05-27] MEDS ORDERED: DICLOFENAC SOD 75 MG TABEC PO SCH (08:00)
[2024-05-27] MEDS ORDERED: cefuroxime axetiL 250 MG TAB PO SCH (09:00)
[2024-05-27] MEDS ORDERED: Rivaroxaban 10 MG TAB PO SCH (09:00)
--- NOTE | 2024-05-30 07:04 | OR ---
[facility] [address] [place], [place] [address] Signed DATE OF OPERATION: 05/26/2024 SURGEON: Jane Velasquez MD PREOPERATIVE DIAGNOSIS: Severe degenerative joint disease, right knee. POSTOPERATIVE DIAGNOSIS: Severe degenerative joint disease, right knee. PROCEDURE PERFORMED: Right total knee arthroplasty with Rahul. PATIENT ASSISTANT: Tawana Contreras PA-C. ANESTHESIA: Spinal. BLOOD LOSS: 175 mL. TOURNIQUET TIME: Zero. IMPLANTS: Amy Triathlon size 5, 10 mm polyethylene and a 35 mm patella. BRIEF HISTORY: Wale is a 38-year-old gentleman with progressive worsening of osteoarthritis in both knees, right worse than the left. Risks and benefits of operative treatment were discussed with him and he elected to proceed. Once consent was obtained, he was taken to the operating room. After adequate anesthesia he was placed on the operating room table. All downside pressure points were well padded. The leg was then prepped and draped in the standard sterile fashion. The knee was approached through standard anterior midline incision, carried through skin and subcutaneous tissue. The mid vastus arthrotomy was performed. The infrapatellar fat pad was excised. The MCL was elevated as a sleeve around the posteromedial corner. The anterior horns of menisci were transected. The ACL was transected. PCL was found to be intact. The navigation computer arrays were then placed in the medial femoral condyle, proximal tibia. The leg Electronically Signed By: JANE EVLASQUEZ MD 05/30/24 0704 PATIENT NAME: WALE ROMERO OPERATIVE REPORT DATE OF : 81 REPORT #: [id number] PHYSICIAN: JANE VELASQUEZ MD PCP: NO PRIMARY CARE PHYSICIAN REPORT IS CONFIDENTIAL AND NOT TO BE RELEASED WITHOUT AUTHORIZATION [facility] [address] [place], [place] [address] Signed was then registered with the computer followed by the four anatomic poses. The fine anatomic points of the knee were then taken and the adjustments were made to the computer plan to accommodate for the significant valgus. Once this was completed, the robot was brought in. Four straight cut, two angle cuts were made with care taken to protect the patellar tendon and MCL. The bone remnants were then removed. Posterior osteophytes removed off the femur. No posterior release was performed. The trials were then positioned. Knee was taken through range of motion and found to be good. The patella tracked well. The patella was cut, sized and drilled for a 35 mm patella. The distal femoral drill holes were completed and the proximal tibia was completed using the keel punch followed by the drill. The implants were then selected. The tibia was impacted into position first followed by the polyethylene. The femur was then impacted. The knee was extended and loaded. The patella was clamped into position with excellent apposition. The knee was taken through range of motion, found to be stable. The patella did track little bit laterally, so lateral release was performed. The knee was then irrigated with one bottle of Surgiphor followed by normal saline. The periarticular soft tissues were injected with 100 mL ropivacaine and Toradol mixture. The On-Q pain pump was percutaneously placed into the adductor canal from the suprapatellar pouch. The arthrotomy was then closed using a combination of #2 FiberWire, #2 Stratafix, subcutaneous tissue with 0 Stratafix and skin with 3-0 Stratafix. The wound was then sealed with LiquiBand and Steri-Strips and dressed with an Acticoat-7 dressing, ABDs and Josué wrap. He tolerated the procedure well. All sponge, needle, and instrument counts were correct. Jane Velasquez MD BA/MODL /[id number] Copies: ~ Electronically Signed By: JANE VELASQUEZ MD 05/30/24 0704 PATIENT NAME: WALE ROMERO OPERATIVE REPORT DATE OF : 81 REPORT #: [id number] PHYSICIAN: JANE VELASQUEZ MD PCP: NO PRIMARY CARE PHYSICIAN REPORT IS CONFIDENTIAL AND NOT TO BE RELEASED WITHOUT AUTHORIZATION
== END 2024-05-26 16:15 | disposition home or self-care (01) ==
LOC: DS 06:45
PROVIDERS: ATTEND Specialist
PROC: 0SRC0JZ Replacement of Right Knee Joint with Synthetic Substitute, Open Approach (ICD-10-PCS; principal; 2024-05-26 09:25)
DX: M17.0 Bilateral primary osteoarthritis of knee (principal); F17.210 Nicotine dependence, cigarettes, uncomplicated
CPT/HCPCS: 01400; 64447; 64450; 64454; 73560; 76942; 97161; A9270; C1713; C1776; J0131; J0690; J1100; J2003; J2250; J2704; J2795; J3010; J7121; J7999